=== PATIENT | male | born 1930 | race Caucasian/White ===

== ENCOUNTER 2017-11-27 14:15 | Emergency (ER) | payer MEDICARE, OTHER ==
--- NOTE | 2017-11-27 14:53 | EDM.PDOC ---
ED HPI GENERAL MEDICAL PROBLEM - General Stated Complaint: AWFUL COUGH [id number] Time Seen by Provider: 11/27/17 14:40 Source of Information: Reports: Patient History Limitations: Reports: No Limitations - History of Present Illness INITIAL COMMENTS - FREE TEXT/NARRATIVE: This 87 yo male patient reports to the ED with a persistent cough for the past 3 months. The patient reports that he has been seen for these symptoms, but the cough has not resolved at this time. The patient reports that his symptoms have gotten less over the past couple of months. The patient has a history of throat cancer and has been through treatment. After the completion of the treatment, he reports his current symptoms started. Duration: Week(s):, Constant, Improving (slowly) Location: Reports: Neck, Chest Quality: Reports: Other Severity: Moderate Improves with: Reports: None Worsens with: Reports: Immobilization Associated Symptoms: Reports: Cough - Related Data Allergies Allergy/AdvReac Type Severity Reaction Status Date / Time lisinopril Allergy Cough Verified 11/27/17 14:55 ED ROS GENERAL - Review of Systems Review Of Systems: ROS reveals no pertinent complaints other than HPI. ED EXAM, GENERAL - Physical Exam Exam: See Below Exam Limited By: No Limitations General Appearance: Alert, WD/WN, Mild Distress Eye Exam: Bilateral Eye: EOMI, Normal Inspection, PERRL Ears: Normal External Exam, Normal Canal, Hearing Grossly Normal, Normal TMs Nose: Normal Inspection, Normal Mucosa, No Blood Throat/Mouth: Normal Inspection, Normal Lips, Normal Teeth, Normal Gums, Normal Oropharynx, Normal Voice, No Airway Compromise Head: Atraumatic Neck: Normal Inspection, Supple, Non-Tender, Full Range of Motion Respiratory/Chest: Decreased Breath Sounds (throughout lung patel) Cardiovascular: Normal Peripheral Pulses, Regular Rate, Rhythm, No Edema, No Gallop, No JVD, No Murmur, No Rub GI/Abdominal: Normal Bowel Sounds, Soft, Non-Tender, No Organomegaly, No Distention, No Abnormal Bruit, No Mass (Male) Exam: Deferred Rectal (Males) Exam: Deferred Back Exam: Normal Inspection, Full Range of Motion, NT Extremities: Normal Inspection, Normal Range of Motion, Non-Tender, Normal Capillary Refill, No Pedal Edema Neurological: Alert, Oriented, CN II-XII Intact, Normal Cognition, Normal Gait, Normal Reflexes, No Motor/Sensory Deficits Psychiatric: Normal Affect, Normal Mood Skin Exam: Warm, Dry, Intact, Normal Color, No Rash Lymphatic: No Adenopathy Course - Vital Signs Last Recorded V/S: Last Vital Signs Temp 38.4 C H 11/27/17 14:51 Pulse 105 H 11/27/17 14:51 Resp 20 11/27/17 14:51 BP 139/63 11/27/17 14:51 Pulse Ox 95 11/27/17 14:51 - Orders/Labs/Meds Orders: Active Orders 24 hr Category Date Time Status CULTURE STREP A CONFIRMATION [] Stat Lab 11/27/17 14:46 Results STREP SCRN A RAPID W CULT CONF [] Stat Lab 11/27/17 14:46 Results Labs: Laboratory Tests 11/27/17 11/27/17 Range/Units 14:57 14:57 WBC 6.7 (5.0-10.0) 10^3/uL RBC 3.75 L (4.6-6.2) 10^6/uL Hgb 10.7 L (14.0-18.0) g/dL Hct 32.3 L (40.0-54.0) % MCV 86.1 (80-100) fL MCH 28.5 (27.0-34.0) pg MCHC 33.1 (33.0-35.0) g/dL Plt Count 165 (150-450) 10^3/uL Neut % (Auto) 77.9 H (42.2-75.2) % Lymph % (Auto) 6.7 L (20.5-50.1) % [place] % (Auto) 12.9 H (2-8) % Eos % (Auto) 2.2 (1.0-3.0) % Baso % (Auto) 0.3 (0.0-1.0) % Sodium 130 L (135-145) mmol/L Potassium 4.5 (3.6-5.0) mmol/L Chloride 93 L (101-111) mmol/L Carbon Dioxide 27.0 (21.0-31.0) mmol/L Anion Gap 14.5 BUN 32 H (7-18) mg/dL Creatinine 1.2 (0.6-1.3) mg/dL Est Cr Clr Drug Dosing 36.22 mL/min Estimated GFR (MDRD) 58 BUN/Creatinine Ratio 26.66 Glucose 78 (74-105) mg/dL Calcium 9.7 (8.4-10.2) mg/dl Total Bilirubin 0.5 (0.2-1.0) mg/dL AST 23 (10-42) IU/L ALT 21 (10-60) IU/L Alkaline Phosphatase 49 (42-121) IU/L Total Protein 6.2 L (6.7-8.2) g/dl Albumin 3.0 L (3.2-5.5) g/dl Globulin 3.2 Albumin/Globulin Ratio 0.94 Departure - Departure Time of Disposition: 15:53 Disposition: Home, Self-Care 01 Condition: Fair Clinical Impression: Cough productive of clear sputum - Discharge Information *PRESCRIPTION DRUG MONITORING PROGRAM REVIEWED*: Not Applicable *COPY OF PRESCRIPTION DRUG MONITORING REPORT IN PATIENT ANNE: Not Applicable Instructions: Cough, Adult, [id number] Care Plan Goals: The patient was advised of the examination, lab and x-ray results during the visit. The patient was discharged with a script for Tessalon Pearles (100 mg) # 30 to take 1 by mouth TID as needed. The patient was encouraged to follow-up with his primary care facility for further evaluation (Pulmonary Function Testing) and treatment. If the patient has any additional symptoms or concerns, the patient should follow-up with his primary care provider or return to the emergency department. - My Orders Last 24 Hours: My Active Orders 11/27/17 14:46 CULTURE STREP A CONFIRMATION [RM] Stat STREP SCRN A RAPID W CULT CONF [RM] Stat - Assessment/Plan Last 24 Hours: My Active Orders 11/27/17 14:46 CULTURE STREP A CONFIRMATION [RM] Stat STREP SCRN A RAPID W CULT CONF [RM] Stat
[2017-11-27 15:22] LABS: ANION GAP 14.5
--- NOTE | 2017-11-27 15:23 | CR ---
Clinical history: 87-year-old male complaining of cough and shortness of breath. Interpretation: Abnormal. Upright PA/lateral chest films confirm some chronic lingular and posterior segment infiltrates (bronc hiectasis?) that was evident on CT exam 17 October 2017. Clinical aspiration? Chronic hypertrophic arthritic changes of the dorsal spine. Calcifications arch of the ectatic aorta. Normal cardiac silhouette without cephalization of vascular flow, signs of alveolar edema or dependen t pleural fluid accumulation. No new lung mass, hilar lymphadenopathy or other focal lobar consolidation. No pneumothorax. 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
== END 2017-11-27 16:09 | disposition home or self-care (01) ==
LOC: DL.ED 14:15 → SUPCPDRO 14:15 → DL.ED 16:09
DX: R05 Cough (principal); C15.9 Malignant neoplasm of esophagus, unspecified; I10 Essential (primary) hypertension; Z88.8 Allergy status to other drugs, medicaments and biological substances
CPT/HCPCS: 36415; 71046; 80053; 85025; 87081; 87430; 99283

== ENCOUNTER 2017-12-07 13:27 | Emergency (ER) | payer MEDICARE, OTHER ==
[2017-12-07] MEDS ORDERED: Sodium Chloride 0.9% 10 ML Syringe FLUSH PRN (13:44)
[2017-12-07] MEDS ORDERED: Sodium Chloride 0.9% 1,000 ML IV ONE (14:33)
--- NOTE | 2017-12-07 15:33 | EDM.PDOC ---
Scribed by Helga Sandhu 12/07/17 [id number] for Gisela Stovall MD ED HPI GENERAL MEDICAL PROBLEM - General Chief Complaint: Respiratory Problem Stated Complaint: AMBULANCE / WEAKNESS Time Seen by Provider: 12/07/17 13:44 Source of Information: Reports: Patient, EMS, EMS Notes Reviewed, RN, RN Notes Reviewed History Limitations: Reports: No Limitations - History of Present Illness INITIAL COMMENTS - FREE TEXT/NARRATIVE: Patient presents to ER by [facility] from home with complaint of cough and shortness of breath. Pt reports that he had chemotherapy yesterday, but his states that he finished his cancer treatments in August 2017. Patient also had CT scan yesterday. Patient is confused and not able to provide any history. Pt's states that he has been living at home requiring minimal assistance up until 3 days ago. For the last three days reports he has been confused, too weak to stand or walk, and not eating or drinking anything. Pt became incontinent of urine today. Denies fevers or chills, falls, vomiting, or diarrhea. reports pt has had a cough since completing chemo in August. Onset: Gradual Duration: Constant, Getting Worse Location: Reports: Chest, Generalized Quality: Reports: Other (Denies pain) Severity: Severe Improves with: Reports: None Worsens with: Reports: None Associated Symptoms: Reports: No Other Symptoms - Related Data Allergies Allergy/AdvReac Type Severity Reaction Status Date / Time lisinopril Allergy Cough Verified 12/07/17 13:59 Home Meds: Home Meds Calcium Carbonate/Vitamin D3 [Calcium 500 + Vit D Caplet] 1 cap PO DAILY [History] Losartan [Cozaar] 25 mg PO DAILY 12/07/17 [History] Magnesium 200 mg PO DAILY 12/07/17 [History] Oxybutynin 5 mg PO DAILY 12/07/17 [History] predniSONE [Prednisone] 10 mg PO DAILY 12/07/17 [History] Past Medical History HEENT History: Reports: Impaired Vision Cardiovascular History: Reports: Hypertension Genitourinary History: Reports: Prostate Disorder Oncologic (Cancer) History: Reports: Esophageal, Prostate - Past Surgical History Musculoskeletal Surgical History: Reports: Other (See Below) Other Musculoskeletal Surgeries/Procedures:: back surgery Social & Family History - Family History Family Medical History: Unobtainable - Tobacco Use Smoking Status *Q: Former Smoker Tobacco Use Within Last Twelve Months: Cigarettes - Caffeine Use Caffeine Use: Reports: None - Alcohol Use Alcohol Use History: No - Recreational Drug Use Recreational Drug Use: No - Living Situation & Occupation Living situation: Reports: , with Spouse Occupation: Retired ED ROS GENERAL - Review of Systems Review Of Systems: Unable To Obtain ED EXAM, GENERAL - Physical Exam Exam: See Below Exam Limited By: Altered Mental Status General Appearance: Alert, No Apparent Distress, Other (chronically ill, but non -toxic appearing) Eye Exam: Bilateral Eye: Normal Inspection Ears: Normal External Exam Nose: Normal Inspection, No Blood Throat/Mouth: No Airway Compromise, Other (very dry oral membranes) Head: Atraumatic, Normocephalic Neck: Normal Inspection, Full Range of Motion Respiratory/Chest: No Accessory Muscle Use, Chest Non-Tender, Decreased Breath Sounds, Crackles, Other (hyperventilating). No: Rales, Rhonchi, Wheezing, Stridor, Retractions, Splinting, Prolonged Expiration Cardiovascular: Regular Rate, Rhythm GI/Abdominal: Normal Bowel Sounds, Soft, Non-Tender, No Distention (Male) Exam: Deferred Extremities: Normal Inspection Neurological: Alert, No Motor/Sensory Deficits, Confused, Other (generalized weakness) Psychiatric: Flat Affect Skin Exam: Warm, Dry, Intact, Normal Color Course - Vital Signs Last Recorded V/S: Last Vital Signs Temp 37.2 C 12/07/17 14:20 Pulse 97 12/07/17 13:47 Resp 30 H 12/07/17 13:47 BP 164/66 H 12/07/17 13:47 Pulse Ox 84 L 12/07/17 13:47 - Orders/Labs/Meds Orders: Active Orders 24 hr Category Date Time Status Blood Glucose Check, Bedside [RC] ONETIME Care 12/07/17 13:45 Active Peripheral IV Care [RC] . DIRECTED Care 12/07/17 13:46 Active Chest 1V Frontal [CR] Stat Exams 12/07/17 13:44 Taken CULTURE BLOOD [BC] Stat Lab 12/07/17 13:50 Received CULTURE BLOOD [BC] Stat Lab 12/07/17 13:56 Received Sodium Chloride 0.9% [Normal Saline] 1,000 ml Med 12/07/17 14:33 Active IV .BOLUS Sodium Chloride 0.9% [Saline Flush] Med 12/07/17 13:44 Active 10 ml FLUSH ASDIRECTED PRN Blood Culture x2 Reflex Set [OM.PC] Stat Oth 12/07/17 13:44 Ordered Peripheral IV Insertion Adult [OM.PC] Stat Oth 12/07/17 13:44 Ordered Medication Orders Sodium Chloride (Normal Saline) 1,000 mls @ 250 mls/hr IV .BOLUS ONE Stop: 12/07/17 18:32 Last Admin: 12/07/17 14:45 Dose: 250 mls/hr Sodium Chloride (Saline Flush) 10 ml FLUSH ASDIRECTED PRN PRN Reason: Keep Vein Open Last Admin: 12/07/17 13:55 Dose: 10 ml Labs: Laboratory Tests 12/07/17 12/07/17 12/07/17 Range/Units 13:50 13:50 13:50 WBC (5.0-10.0) 10^3/uL RBC (4.6-6.2) 10^6/uL Hgb (14.0-18.0) g/dL Hct (40.0-54.0) % MCV (80-100) fL MCH (27.0-34.0) pg MCHC (33.0-35.0) g/dL Plt Count (150-450) 10^3/uL Neut % (Auto) (42.2-75.2) % Lymph % (Auto) (20.5-50.1) % [place] % (Auto) (2-8) % Eos % (Auto) (1.0-3.0) % Baso % (Auto) (0.0-1.0) % Sodium 135 (135-145) mmol/L Potassium 4.0 (3.6-5.0) mmol/L Chloride 97 L (101-111) mmol/L Carbon Dioxide 29.0 (21.0-31.0) mmol/L Anion Gap 13.0 BUN 65 H D (7-18) mg/dL Creatinine 3.3 H D (0.6-1.3) mg/dL Est Cr Clr Drug Dosing 12.60 mL/min Estimated GFR (MDRD) 18 BUN/Creatinine Ratio 19.69 Glucose 95 (74-105) mg/dL POC Glucose (83-110) mg/dl Lactic Acid (0.5-2.2) mmol/L Calcium 14.2 H* D (8.4-10.2) mg/dl Phosphorus 5.0 H (2.5-4.6) mg/dL Magnesium 2.2 (1.8-2.5) mg/dL Total Bilirubin 0.6 (0.2-1.0) mg/dL AST 31 (10-42) IU/L ALT 17 (10-60) IU/L Alkaline Phosphatase 57 (42-121) IU/L Total Protein 6.7 (6.7-8.2) g/dl Albumin 2.7 L (3.2-5.5) g/dl Globulin 4.0 Albumin/Globulin Ratio 0.68 TSH, Ultra Sensitive 1.31 (0.45-5.33) uIu/mL Urine Color (YELLOW) Urine Appearance (CLEAR) Urine pH (5.0-9.0) Ur Specific [place] (1.005-1.030) Urine Protein (NEGATIVE) Urine Glucose (UA) (NEGATIVE) Urine Ketones (NEGATIVE) Urine Occult Blood (NEGATIVE) Urine Nitrite (NEGATIVE) Urine Bilirubin (NEGATIVE) Urine Urobilinogen (0.2-1.0) mg/dL Ur Leukocyte Esterase (NEGATIVE) Urine RBC /HPF Urine WBC (0-5/HPF) /HPF Ur Epithelial Cells /HPF Urine Bacteria (0-FEW/HPF) /HPF Urine Mucus /LPF 12/07/17 12/07/17 12/07/17 Range/Units 13:52 13:56 13:56 WBC 5.8 (5.0-10.0) 10^3/uL RBC 3.35 L (4.6-6.2) 10^6/uL Hgb 9.5 L (14.0-18.0) g/dL Hct 28.6 L (40.0-54.0) % MCV 85.4 (80-100) fL MCH 28.4 (27.0-34.0) pg MCHC 33.2 (33.0-35.0) g/dL Plt Count 185 (150-450) 10^3/uL Neut % (Auto) 70.4 (42.2-75.2) % Lymph % (Auto) 11.9 L (20.5-50.1) % [place] % (Auto) 16.4 H (2-8) % Eos % (Auto) 1.0 (1.0-3.0) % Baso % (Auto) 0.3 (0.0-1.0) % Sodium (135-145) mmol/L Potassium (3.6-5.0) mmol/L Chloride (101-111) mmol/L Carbon Dioxide (21.0-31.0) mmol/L Anion Gap BUN (7-18) mg/dL Creatinine (0.6-1.3) mg/dL Est Cr Clr Drug Dosing mL/min Estimated GFR (MDRD) BUN/Creatinine Ratio Glucose (74-105) mg/dL POC Glucose 87 (83-110) mg/dl Lactic Acid 1.1 (0.5-2.2) mmol/L Calcium (8.4-10.2) mg/dl Phosphorus (2.5-4.6) mg/dL Magnesium (1.8-2.5) mg/dL Total Bilirubin (0.2-1.0) mg/dL AST (10-42) IU/L ALT (10-60) IU/L Alkaline Phosphatase (42-121) IU/L Total Protein (6.7-8.2) g/dl Albumin (3.2-5.5) g/dl Globulin Albumin/Globulin Ratio TSH, Ultra Sensitive (0.45-5.33) uIu/mL Urine Color (YELLOW) Urine Appearance (CLEAR) Urine pH (5.0-9.0) Ur Specific [place] (1.005-1.030) Urine Protein (NEGATIVE) Urine Glucose (UA) (NEGATIVE) Urine Ketones (NEGATIVE) Urine Occult Blood (NEGATIVE) Urine Nitrite (NEGATIVE) Urine Bilirubin (NEGATIVE) Urine Urobilinogen (0.2-1.0) mg/dL Ur Leukocyte Esterase (NEGATIVE) Urine RBC /HPF Urine WBC (0-5/HPF) /HPF Ur Epithelial Cells /HPF Urine Bacteria (0-FEW/HPF) /HPF Urine Mucus /LPF 12/07/17 Range/Units 14:17 WBC (5.0-10.0) 10^3/uL RBC (4.6-6.2) 10^6/uL Hgb (14.0-18.0) g/dL Hct (40.0-54.0) % MCV (80-100) fL MCH (27.0-34.0) pg MCHC (33.0-35.0) g/dL Plt Count (150-450) 10^3/uL Neut % (Auto) (42.2-75.2) % Lymph % (Auto) (20.5-50.1) % [place] % (Auto) (2-8) % Eos % (Auto) (1.0-3.0) % Baso % (Auto) (0.0-1.0) % Sodium (135-145) mmol/L Potassium (3.6-5.0) mmol/L Chloride (101-111) mmol/L Carbon Dioxide (21.0-31.0) mmol/L Anion Gap BUN (7-18) mg/dL Creatinine (0.6-1.3) mg/dL Est Cr Clr Drug Dosing mL/min Estimated GFR (MDRD) BUN/Creatinine Ratio Glucose (74-105) mg/dL POC Glucose (83-110) mg/dl Lactic Acid (0.5-2.2) mmol/L Calcium (8.4-10.2) mg/dl Phosphorus (2.5-4.6) mg/dL Magnesium (1.8-2.5) mg/dL Total Bilirubin (0.2-1.0) mg/dL AST (10-42) IU/L ALT (10-60) IU/L Alkaline Phosphatase (42-121) IU/L Total Protein (6.7-8.2) g/dl Albumin (3.2-5.5) g/dl Globulin Albumin/Globulin Ratio TSH, Ultra Sensitive (0.45-5.33) uIu/mL Urine Color Yellow (YELLOW) Urine Appearance Clear (CLEAR) Urine pH 6.5 (5.0-9.0) Ur Specific [place] 1.015 (1.005-1.030) Urine Protein Negative (NEGATIVE) Urine Glucose (UA) Negative (NEGATIVE) Urine Ketones Negative (NEGATIVE) Urine Occult Blood Trace-intact H (NEGATIVE) Urine Nitrite Negative (NEGATIVE) Urine Bilirubin Negative (NEGATIVE) Urine Urobilinogen 0.2 (0.2-1.0) mg/dL Ur Leukocyte Esterase Negative (NEGATIVE) Urine RBC 5-10 H /HPF Urine WBC 5-10 H (0-5/HPF) /HPF Ur Epithelial Cells Rare /HPF Urine Bacteria Occasional (0-FEW/HPF) /HPF Urine Mucus Occasional /LPF Influenza A and B: Negative. Meds: Medications Generic Name Dose Route Start Last Admin Trade Name Freq PRN Reason Stop Dose Admin Sodium Chloride 1,000 mls @ 250 mls/hr 12/07/17 14:33 12/07/17 14:45 Normal Saline IV 12/07/17 18:32 250 mls/hr .BOLUS ONE Administration Sodium Chloride 10 ml 12/07/17 13:44 12/07/17 13:55 Saline Flush FLUSH 10 ml ASDIRECTED PRN Administration Keep Vein Open - Radiology Interpretation Free Text/Narrative:: [facility] [place] [facility] Final Radiology Report Call: [phone] assistance Online chat: [email or web address] Name: JEFF ZHAO Age: 87Years M Date: 12/07/2017 SSN: -- : [id number] Study: XR CHEST 1 VIEW Requesting Physician: GISELA STOVALL Images: 1 Addl Studies: Provided Clinical History: Contrast: Contrast Medium: Contrast Amount: Contrast Method: CONFIDENTIALITY STATEMENT This report is intended only for use by the referring physician, and only in accordance with law. If you received this in error, call [phone]. Page 1 of 1 EXAM: XR Chest, 1 View EXAM DATE/TIME: 12/07/2017 2:06 PM CLINICAL HISTORY: 87 years old, male; Pain; Chest pain; Type not specified TECHNIQUE: XR of the chest, 1 view. COMPARISON: CT Chest wo Cont 12/06/2017 2:06 PM FINDINGS: Lungs: Nonspecific bibasilar consolidation is present, consistent with atelectasis, edema, or pneumonia. Pleural space: Unremarkable. No pleural effusion. No pneumothorax. Heart/Mediastinum: The heart demonstrates mild diffuse enlargement. The vasculature demonstrates diffuse moderate atherosclerotic calcification. Bones/joints: The thoracic spine demonstrates moderate degenerative changes at multiple levels. IMPRESSION: Nonspecific bibasilar consolidation is present, consistent with atelectasis, edema, or pneumonia. Thank you for allowing us to participate in the care of your patient. Dictated and Authenticated by: Mike Lazo DO 12/07/2017 2:52 PM Central Time ([place] & [place]) - Re-Assessments/Exams Free Text/Narrative Re-Assessment/Exam: 12/07/17 15:11 Discussed transfer options with pt's . She wishes to have pt transferred to [facility] in rather than [place]. She site the distance, and insurance coverage, expressing concern that the transfer may not be paid by insurance if he does not go to the closest capable facility, and that he likely will not require care from his oncologist at this point. Departure - Departure Time of Disposition: 15:14 Disposition: DC/Tfer to [facility] 02 Condition: Serious Clinical Impression: Hypercalcemia of malignancy, Atelectasis of both lungs, Hypoxia, History of esophageal cancer, History of prostate cancer - Discharge Information *PRESCRIPTION DRUG MONITORING PROGRAM REVIEWED*: No *COPY OF PRESCRIPTION DRUG MONITORING REPORT IN PATIENT ANNE: No Referrals: Ebony Salmon PA-C [Primary Care Provider] - Forms: ED Department Discharge, Interfacility Transfer EMTALA - My Orders Last 24 Hours: My Active Orders 12/07/17 13:44 Chest 1V Frontal [CR] Stat Sodium Chloride 0.9% [Saline Flush] 10 ml FLUSH ASDIRECTED PRN Blood Culture x2 Reflex Set [OM.PC] Stat Peripheral IV Insertion Adult [OM.PC] Stat 12/07/17 13:45 Blood Glucose Check, Bedside [RC] ONETIME 12/07/17 13:46 Peripheral IV Care [RC] . DIRECTED 12/07/17 13:50 CULTURE BLOOD [BC] Stat 12/07/17 13:56 CULTURE BLOOD [BC] Stat 12/07/17 14:33 Sodium Chloride 0.9% [Normal Saline] 1,000 ml IV .BOLUS - Assessment/Plan Last 24 Hours: My Active Orders 12/07/17 13:44 Chest 1V Frontal [CR] Stat Sodium Chloride 0.9% [Saline Flush] 10 ml FLUSH ASDIRECTED PRN Blood Culture x2 Reflex Set [OM.PC] Stat Peripheral IV Insertion Adult [OM.PC] Stat 12/07/17 13:45 Blood Glucose Check, Bedside [RC] ONETIME 12/07/17 13:46 Peripheral IV Care [RC] . DIRECTED 12/07/17 13:50 CULTURE BLOOD [BC] Stat 12/07/17 13:56 CULTURE BLOOD [BC] Stat 12/07/17 14:33 Sodium Chloride 0.9% [Normal Saline] 1,000 ml IV .BOLUS I have read and agree with the documentation that has been completed regarding this visit. By signing this record, I attest that the documentation was completed in my physical presence and is an accurate record of the encounter.
== END 2017-12-07 15:56 ==
LOC: DL.ED 13:27
DX: R09.02 Hypoxemia (principal); E83.52 Hypercalcemia; J98.11 Atelectasis; I10 Essential (primary) hypertension; Z85.01 Personal history of malignant neoplasm of esophagus; Z85.46 Personal history of malignant neoplasm of prostate; Z88.8 Allergy status to other drugs, medicaments and biological substances; Z79.899 Other long term (current) drug therapy; Z87.891 Personal history of nicotine dependence
CPT/HCPCS: 36415; 71045; 80053; 81001; 82962; 83605; 83735; 84100; 84443; 85025; 87040; 87804; 96360; 99285; J7030; J7050

== ENCOUNTER → 2018-06-11 | Day surgery (SDC) | payer MEDICARE, OTHER ==
[~2018-06-11] MED LIST: Dextrose 5%-0.45% NaCl 1,000 ML IV SCH; Midazolam 1 MG/ML 2 ML SDV IV ONE; Midazolam 1 MG/ML 2 ML SDV ONE; fentaNYL 100 MCG/2 ML SDV IV ONE; fentaNYL 100 MCG/2 ML SDV ONE
--- NOTE | 2018-06-11 15:10 | OR ---
DATE: 06/11/2018 PROCEDURE: Esophagogastroduodenoscopy, NBI, and multiple pinch biopsies. INSTRUMENT USED: GIF-HQ190 Olympus video panendoscope. PREMEDICATIONS: No oral topical anesthesia used. Fentanyl 50 mcg intravenous, Versed 1 mg intravenous. Nasal O2 cannula. The procedure was done under pulse oximetry, BP recording, and front desk monitor. INDICATION: The patient was status post chemoradiation therapy. For esophageal cancer. Surveillance esophagogastroduodenoscopy is performed for detection of any recurrent malignancy, endoscopic hemostasis therapy if needed. The scope was passed with ease. Adequate visualization of the esophagus was made proximal to distal areas. No upper esophageal lesions identified. No distal esophageal stricture. No uphill or downhill esophageal varices. No Radha-Bach tear. No evidence of erosive esophagitis by Glynn criteria. Diminutive esophageal nodule was noted. NBI views were obtained. Photographs were taken. Numerous pinch biopsies obtained histopathology. No proximal gastric varices noted. Gastric fundus examination by retroflexion showed no polypoid lesions. No gastric ulcer, malignant mass, or vascular ectasia identified. Duodenal bulb showed no ulcer. Visualized second part of the duodenum was unremarkable. No bleeding was noted from any of the visualized areas at the completion of the examination. IMPRESSION: Esophageal nodule. The patient tolerated the procedure well. [facility] /[id number]
--- NOTE | 2018-06-12 08:01 | LETTER ---
06/11/2018 Dr. Shirley [facility] [address] [place] [address] RE: ROSCOE ZHAO : [address] Olsen: Mr. Roscoe Zhao had esophagogastroduodenoscopy done this morning, and he tolerated the procedure well. I hereby send a copy of the endoscopy note and photographs for your review. Thank you. Sincerely, [facility] /[id number]
== END | disposition home or self-care (01) ==
LOC: DL.ENDO 06:44
PROVIDERS: ATTEND Internal Medicine Gastroenterology
DX: Z08 Encounter for follow-up examination after completed treatment for malignant neoplasm (principal); K20.9 Esophagitis, unspecified; I10 Essential (primary) hypertension; Z92.3 Personal history of irradiation; Z85.01 Personal history of malignant neoplasm of esophagus; Z92.21 Personal history of antineoplastic chemotherapy
CPT/HCPCS: 43239; J7042; J2250; J3010

== ENCOUNTER 2018-06-18 09:43 | Day surgery (SDC) | payer MEDICARE, OTHER ==
[2018-06-18] MEDS ORDERED: Midazolam 1 MG/ML 2 ML SDV IV ONE (09:44)
[2018-06-18] MEDS ORDERED: Dexamethasone 4 MG/ML SDV IV ONE (09:44)
[2018-06-18] MEDS ORDERED: Sodium Chloride 0.9% 10 ML Syringe IV ONE (09:44)
[2018-06-18] MEDS ORDERED: Sodium Chloride 0.9% 10 ML Syringe FLUSH PRN (10:00)
[2018-06-18] MEDS ORDERED: Cataract Ophth Solution EYELF ONE (10:00)
[2018-06-18] MEDS ORDERED: Timolol Maleate 0.5% Ophth Soln 5 ML Bottle EYELF ONE (10:00)
[2018-06-18] MEDS ORDERED: Proparacaine 0.5% Ophth Soln 15 ML Bottle EYELF ONE (10:00)
[2018-06-18] MEDS ORDERED: Acetaminophen 325 MG Tab PO PRN (10:00)
[2018-06-18] MEDS ORDERED: Ondansetron 4 MG/2 ML SDV IVPUSH PRN (10:00)
[2018-06-18] MEDS ORDERED: Phenylephrine 10% Ophth Soln 5 ML Bot EYELF PRN (10:00)
[2018-06-18] MEDS ORDERED: Moxifloxacin 0.5% Ophth Soln 3 ML Bottle EYELF ONE (10:00)
[2018-06-18] MEDS ORDERED: Phenylephrine 10% Ophth Soln 5 ML Bot EYELF ONE (10:00)
[2018-06-18] MEDS ORDERED: Povidone-Iodine 5% Sterile Ophth Soln 30 ML Bottle EYELF ONE ×2 (10:00→11:07)
[2018-06-18] MEDS ORDERED: Lidocaine 1% 30 ML SDV ONE (11:06)
[2018-06-18] MEDS ORDERED: Apraclonidine 0.5% Ophth Soln 5 ML Bot EYELF ONE (11:07)
[2018-06-18] MEDS ORDERED: Diclofenac Sodium 0.1% Ophth Soln 5 ML Bottle EYELF ONE (11:07)
[2018-06-18] MEDS ORDERED: Tetracaine HCl/PF 0.5% 4 ML Bottle EYELF ONE (11:07)
[2018-06-18] MEDS ORDERED: Balanced Salt Solution Ophth Irrig 500 ML Bottle IOCULAR ONE (11:08)
[2018-06-18] MEDS ORDERED: Vancomycin 500 MG SDV EYELF ONE (11:08)
[2018-06-18] MEDS ORDERED: Dexamethasone/Neomycin/Polymyxin B Ophth Oint 3.5 GM Tube EYELF ONE (11:08)
[2018-06-18] MEDS ORDERED: Chondroitin Sulfate/Hyaluronate Sodium Ophth Inj 0.75 ML Syringe EYELF ONE (11:08)
--- NOTE | 2018-06-18 17:40 | OR ---
DATE: 06/18/2018 PREOPERATIVE DIAGNOSIS: Visually significant mixed cataract, left eye. POSTOPERATIVE DIAGNOSIS: Visually significant mixed cataract, left eye. PROCEDURE: Extracapsular cataract extraction with intraocular lens implant, left eye. ANESTHESIA: Topical/local MAC. COMPLICATIONS: None. INDICATION: Mr. Garvey was seen in the clinic. He is unhappy with his vision with complaints of blurred distance and blurred near vision, difficulty driving, and difficulty reading. Examination reveals mixed cataract. I explained the options, offered surgery, and explained risks preoperatively including, but not limited to infection, retinal detachment, loss of vision, need for additional surgery, amongst others. We discussed implant options. He has requested a monofocal implant. OPERATIVE DESCRIPTION: After informed consent was obtained and the risks, benefits, and alternatives were explained, the patient was brought to the operative suite and topical anesthesia was administered. The patient was then prepped and draped in the sterile fashion and attention was placed on the left eye. A sterile lid speculum was placed into the left eye to allow operative exposure. A full-thickness paracentesis was made in the temporal portion of the operative eye. Preservative-free lidocaine 0.1 mL was injected into the anterior chamber followed by viscoelastic. A full-thickness corneal incision was then made into the anterior chamber. A bent needle cystotome was used to create a small hitesh in the anterior capsule. The capsulorrhexis forceps was then used to create a 360-degree curvilinear capsulorrhexis. The nucleus was then removed using a phacoemulsification handpiece and the remaining cortical material was then removed with irrigation and aspiration handpiece. Following removal of the cortical material, the capsular bag was then inspected and noted to be free of any holes or tears. Viscoelastic was then injected into the capsular bag and the intraocular lens was inserted into the capsular bag. The viscoelastic material was then removed from both the anterior and posterior chambers and from behind the IOL. The lens and capsular bag were then reinspected. The IOL was well centered and the capsular bag intact. The wound and paracentesis sites were inspected and hydrated with balanced saline solution. Both were found to be self-sealing. The intraocular pressure was assessed digitally and found to be within normal range. A good red reflex was noted at the completion of the procedure. No complications occurred during the operation. At the completion of the procedure, Maxitrol, Voltaren, and Iopidine drops were placed into the operative eye. A sterile eye shield was placed over the operative eye and the patient was transported to the postoperative recovery area having tolerated the procedure well. Postoperative instructions were given along with a postoperative appointment. The patient was advised to call with any questions or concerns. [facility] /[id number]
== END 2018-06-18 12:15 | disposition home or self-care (01) ==
LOC: DL.SDS 09:43
PROVIDERS: ATTEND Ophthalmology
DX: H26.8 Other specified cataract (principal); I48.91 Unspecified atrial fibrillation; I12.9 Hypertensive chronic kidney disease with stage 1 through stage 4 chronic kidney disease, or unspecified chronic kidney disease; N18.3 Chronic kidney disease, stage 3 (moderate); D64.9 Anemia, unspecified; F32.9 Major depressive disorder, single episode, unspecified; C61 Malignant neoplasm of prostate; M19.90 Unspecified osteoarthritis, unspecified site; E66.9 Obesity, unspecified; Z68.24 Body mass index [BMI] 24.0-24.9, adult; Z87.891 Personal history of nicotine dependence; Z88.8 Allergy status to other drugs, medicaments and biological substances; Z79.899 Other long term (current) drug therapy
CPT/HCPCS: 00142; 66984; A9270; C1780; J1100; J2001; J2250; J3370

== ENCOUNTER 2018-06-25 08:31 | Day surgery (SDC) | payer MEDICARE, OTHER ==
[~2018-06-25 08:31] MED LIST changes: +Acetaminophen 325 MG Tab PO PRN; +Cataract Ophth Solution EYERT ONE; -Dextrose 5%-0.45% NaCl 1,000 ML IV SCH; -Midazolam 1 MG/ML 2 ML SDV IV ONE; -Midazolam 1 MG/ML 2 ML SDV ONE; +Moxifloxacin 0.5% Ophth Soln 3 ML Bottle EYERT ONE; +Ondansetron 4 MG/2 ML SDV IVPUSH PRN; +Phenylephrine 10% Ophth Soln 5 ML Bot EYERT ONE; +Phenylephrine 10% Ophth Soln 5 ML Bot EYERT PRN; +Povidone-Iodine 5% Sterile Ophth Soln 30 ML Bottle EYERT ONE; +Proparacaine 0.5% Ophth Soln 15 ML Bottle EYERT ONE; +Sodium Chloride 0.9% 10 ML Syringe FLUSH PRN; +Timolol Maleate 0.5% Ophth Soln 5 ML Bottle EYERT ONE; -fentaNYL 100 MCG/2 ML SDV IV ONE; -fentaNYL 100 MCG/2 ML SDV ONE
[2018-06-25] MEDS ORDERED: Midazolam 1 MG/ML 2 ML SDV IV ONE (08:32)
[2018-06-25] MEDS ORDERED: Dexamethasone 4 MG/ML SDV IV ONE (08:32)
[2018-06-25] MEDS ORDERED: Povidone-Iodine 5% Sterile Ophth Soln 30 ML Bottle EYERT ONE (09:45)
[2018-06-25] MEDS ORDERED: Lidocaine 1% 30 ML SDV ONE (09:46)
[2018-06-25] MEDS ORDERED: Tetracaine HCl/PF 0.5% 4 ML Bottle EYERT ONE (09:46)
[2018-06-25] MEDS ORDERED: Diclofenac Sodium 0.1% Ophth Soln 5 ML Bottle EYERT ONE (09:47)
[2018-06-25] MEDS ORDERED: Apraclonidine 0.5% Ophth Soln 5 ML Bot EYERT ONE (09:47)
[2018-06-25] MEDS ORDERED: Dexamethasone/Neomycin/Polymyxin B Ophth Oint 3.5 GM Tube EYERT ONE (09:47)
[2018-06-25] MEDS ORDERED: Vancomycin 500 MG SDV EYERT ONE (09:48)
[2018-06-25] MEDS ORDERED: Chondroitin Sulfate/Hyaluronate Sodium Ophth Inj 0.75 ML Syringe EYERT ONE (09:48)
[2018-06-25] MEDS ORDERED: Balanced Salt Solution Ophth Irrig 500 ML Bottle IOCULAR ONE (09:48)
--- NOTE | 2018-06-25 16:25 | OR ---
DATE: 06/25/2018 PREOPERATIVE DIAGNOSIS: Visually significant mixed cataract, right eye. POSTOPERATIVE DIAGNOSIS: Visually significant mixed cataract, right eye. PROCEDURE: Extracapsular cataract extraction with intraocular lens implant, right eye. ANESTHESIA: Topical/local MAC. COMPLICATIONS: None. INDICATION: Mr. Garvey was seen in the clinic with complaints of blurred vision. His examination revealed visually significant mixed cataract. I explained the options. I offered cataract surgery and I explained risks including the potential for infection, retinal detachment, loss of vision amongst others. We discussed implant options. He has requested a monofocal implant. He is comfortable wearing spectacle correction following surgery if necessary. OPERATIVE DESCRIPTION: After informed consent was obtained and the risks, benefits, and alternatives were explained, the patient was brought to the operative suite and topical anesthesia was administered. The patient was then prepped and draped in the sterile fashion and attention was placed on the right eye. A sterile lid speculum was placed into the right eye to allow operative exposure. A full-thickness paracentesis was made in the temporal portion of the operative eye. Preservative-free lidocaine 0.1 mL was injected into the anterior chamber followed by viscoelastic. A full-thickness corneal incision was then made into the anterior chamber. A bent needle cystotome was used to create a small hitesh in the anterior capsule. The capsulorrhexis forceps was then used to create a 360-degree curvilinear capsulorrhexis. The nucleus was then removed using a phacoemulsification handpiece and the remaining cortical material was then removed with irrigation and aspiration handpiece. Following removal of the cortical material, the capsular bag was then inspected and noted to be free of any holes or tears. Viscoelastic was then injected into the capsular bag and the intraocular lens was inserted into the capsular bag. The viscoelastic material was then removed from both the anterior and posterior chambers and from behind the IOL. The lens and capsular bag were then reinspected. The IOL was well centered and the capsular bag intact. The wound and paracentesis sites were inspected and hydrated with balanced saline solution. Both were found to be self- sealing. The intraocular pressure was assessed digitally and found to be within normal range. A good red reflex was noted at the completion of the procedure. No complications occurred during the operation. At the completion of the procedure, Maxitrol, Voltaren, and Iopidine drops were placed into the operative eye. A sterile eye shield was placed over the operative eye and the patient was transported to the postoperative recovery area having tolerated the procedure well. Postoperative instructions were given along with a postoperative appointment. The patient was advised to call with any questions or concerns. [facility] /[id number]
== END 2018-06-25 11:07 | disposition home or self-care (01) ==
LOC: DL.SDS 08:31
PROVIDERS: ATTEND Ophthalmology
DX: H25.811 Combined forms of age-related cataract, right eye (principal); I48.2 Chronic atrial fibrillation; I12.9 Hypertensive chronic kidney disease with stage 1 through stage 4 chronic kidney disease, or unspecified chronic kidney disease; N18.9 Chronic kidney disease, unspecified; D64.9 Anemia, unspecified; E83.52 Hypercalcemia; E87.5 Hyperkalemia; F32.9 Major depressive disorder, single episode, unspecified; Z96.1 Presence of intraocular lens; Z79.899 Other long term (current) drug therapy; Z88.8 Allergy status to other drugs, medicaments and biological substances; Z87.891 Personal history of nicotine dependence
CPT/HCPCS: 00140; 66984; A9270; C1780; J1100; J2001; J2250; J3370; V2632

== ENCOUNTER 2019-01-25 11:17 | Emergency (ER) | payer MEDICARE, OTHER ==
--- NOTE | 2019-01-25 11:42 | EDM.PDOC ---
ED HPI GENERAL MEDICAL PROBLEM - General Chief Complaint: Headache Stated Complaint: RIGHT SIDE OF HEAD HURTS Time Seen by Provider: 01/25/19 11:41 Source of Information: Reports: Patient, RN, RN Notes Reviewed History Limitations: Reports: No Limitations - History of Present Illness INITIAL COMMENTS - FREE TEXT/NARRATIVE: patient presents to ER with complaint of pain in the right side of the head for the past 2 days. Patient explains the pain as a zinging pain that moves only on the right side of the head. Patient states he did have a fall about a year ago where he thinks he mable his neck, but does not feel this is linked. Patient denies being on any blood thinners, denies any falls or injuries, denies any visual disturbances. Patient denies recent illnesses, fever or chills, sinus congestion, postnasal drip. Patient does complain of right eye watering. Onset: Gradual Right Head Pain Score (Numeric/FACES): 4 - Related Data Allergies Allergy/AdvReac Type Severity Reaction Status Date / Time lisinopril AdvReac Cough Verified 01/25/19 11:29 Home Meds: Home Meds Losartan [Cozaar] 25 mg PO DAILY 12/07/17 [History] Magnesium 400 mg PO DAILY 12/07/17 [History] Diltiazem HCl [Diltiazem 24Hr ER] 180 mg PO DAILY 12/18/17 [History] Fluorouracil [Carac] 30 gm TP BEDTIME PRN 12/18/17 [History] Pantoprazole [ProTONIX] 40 mg PO DAILY 12/18/17 [History] Vitamin E 400 unit PO DAILY 12/18/17 [History] Calcitonin,Sedgwick,Synthetic [Calcitonin-Sedgwick] 1 spray INH DAILY 06/10/18 [ History] Cholecalciferol (Vitamin D3) [Vitamin D3] 2,000 intnl unit PO DAILY 06/10/18 [ History] Past Medical History HEENT History: Reports: Cataract, Impaired Vision, Other (See Below) Other HEENT History: HX OF ESOPHAGEAL CANCER Cardiovascular History: Reports: Hypertension Respiratory History: Reports: Other (See Below) Other Respiratory History: CHRONIC DRY COUGH. HX OF ESPOPHGEAL CA Gastrointestinal History: Reports: GERD, Other (See Below) Other Gastrointestinal History: esophageal CA Genitourinary History: Reports: Chronic Renal Insuffiency, Prostate Disorder Musculoskeletal History: Reports: None Neurological History: Reports: None Psychiatric History: Reports: Anxiety, Depression Endocrine/Metabolic History: Reports: None Hematologic History: Reports: Anemia, Blood Transfusion(s) Immunologic History: Reports: None Oncologic (Cancer) History: Reports: Basal Cell Carcinoma, Esophageal, Prostate Dermatologic History: Reports: Other (See Below) Other Dermatologic History: BASAL CELL CARCINOMA - Infectious Disease History Infectious Disease History: Reports: Chicken Pox, Measles, Mumps - Past Surgical History Head Surgeries/Procedures: Reports: None HEENT Surgical History: Reports: None, Cataract Surgery Cardiovascular Surgical History: Reports: None Respiratory Surgical History: Reports: None GI Surgical History: Reports: Colonoscopy, EGD Male Surgical History: Reports: Circumcision Musculoskeletal Surgical History: Reports: Other (See Below) Other Musculoskeletal Surgeries/Procedures:: back surgery Dermatological Surgical History: Reports: Skin Biopsy Social & Family History - Family History Family Medical History: Unobtainable - Tobacco Use Smoking Status *Q: Never Smoker - Caffeine Use Caffeine Use: Reports: Coffee Other Caffeine Use: VERY OCCASIONAL - Recreational Drug Use Recreational Drug Use: No - Living Situation & Occupation Living situation: Reports: , with Spouse Occupation: Retired ED ROS GENERAL - Review of Systems Review Of Systems: Comprehensive ROS is negative, except as noted in HPI. - Physical Exam Exam: See Below Exam Limited By: No Limitations General Appearance: Alert, WD/WN, No Apparent Distress Eye Exam: Bilateral Eye: EOMI, Normal Inspection Ears: Normal External Exam, Hearing Grossly Normal Nose: Normal Inspection Throat/Mouth: Normal Inspection, Normal Voice, No Airway Compromise Head Exam: Atraumatic, Normocephalic, Scalp Tenderness, Facial Tenderness Neck: Normal Inspection, Supple, Non-Tender, Limited Range of Motion Respiratory/Chest: No Respiratory Distress, Lungs Clear, Normal Breath Sounds, No Accessory Muscle Use, Chest Non-Tender Cardiovascular: Normal Peripheral Pulses, Regular Rate, Rhythm, No Edema, No Gallop, No JVD, No Murmur, No Rub GI/Abdominal: Normal Bowel Sounds, Soft, Non-Tender (Male) Exam: Deferred Rectal (Males) Exam: Deferred Neuro Exam (Abbreviated): Alert, Oriented, CN II-XII Intact, Normal Cognition, Normal Gait, Normal Reflexes, No Motor/Sensory Deficits Back Exam: Normal Inspection, Decreased Range of Motion Extremities: Normal Inspection, Normal Range of Motion, Non-Tender, No Pedal Edema, Normal Capillary Refill Psychiatric: Normal Affect, Normal Mood Skin Exam: Warm, Dry, Intact, Normal Color, Zoster-Like Rash (small area approximately 1 cm X1 cm above the right eyebrow near the temporal area, vesicles present, appears herpetic) Course - Vital Signs Last Recorded V/S: Last Vital Signs Temp 97.4 F 01/25/19 11:31 Pulse 81 01/25/19 11:31 Resp 16 01/25/19 11:31 BP 151/91 H 01/25/19 11:31 Pulse Ox 96 01/25/19 11:31 - Radiology Interpretation Free Text/Narrative:: Head CT without contrast: See radiologist's report Departure - Departure Time of Disposition: 12:43 Disposition: Home, Self-Care 01 Condition: Fair Clinical Impression: Shingles Qualifiers: Herpes zoster complications: with ocular involvement Herpes zoster ocular complication detail: conjunctivitis Qualified Code(s): B02.31 - Zoster conjunctivitis - Discharge Information *PRESCRIPTION DRUG MONITORING PROGRAM REVIEWED*: No *COPY OF PRESCRIPTION DRUG MONITORING REPORT IN PATIENT ANNE: No Instructions: Shingles, [id number] Forms: ED Department Discharge Additional Instructions: RX: Valacyclovir 1000mg orally three times daily for 7 days Dexamethasone eye drops as directed May use Tylenol as directed for pain Follow up with your primary care facility Follow up with your optomatrist tomorrow
--- NOTE | 2019-01-25 12:43 | CT ---
EXAMINATION: Head wo Cont SEX: Male AGE: 88 years CLINICAL HISTORY: 88-year-old male "zingers" right side of head (headache). Possible "shingles". No fall/injury. Scan technique: Volume acquisition of data unenhanced emergency CT scan of the head and brain obtained with patient lying supine on the Siemens multislice scanner [place], [place]. All data archived in the PACS system for storage, reformatting axial/sagittal/coronal planes and study (bone/brain windows). INTERPRETATION: 1. Uniformly thick bony calvarium and symmetric clear pneumatization of the paranasal/mastoid sinuses i.e. no inflammation. 2. Symmetric normal-appearing orbits and optic globes. Nasal septum is straight in the midline. 3. Normal symmetric in appearance with underlying mirror-image normal ventricular system. 4. No supratentorial or posterior fossa mass lesion. Cerebellum unremarkable. Physiologic pineal and choroid plexus Ca++. 5. No sign of brain contusion or extracerebral/intracranial epidural/subdural hematoma. 6. No focal areas of ischemic infarct or signs of acute intracerebral/intraventricular/subarachnoid bleed. CONCLUSION: Negative unenhanced CT exam head and brain (for age).
== END 2019-01-25 13:17 | disposition home or self-care (01) ==
LOC: DL.ED 11:17
DX: B02.31 Zoster conjunctivitis (principal); I12.9 Hypertensive chronic kidney disease with stage 1 through stage 4 chronic kidney disease, or unspecified chronic kidney disease; N18.9 Chronic kidney disease, unspecified; K21.9 Gastro-esophageal reflux disease without esophagitis; Z88.8 Allergy status to other drugs, medicaments and biological substances; Z79.899 Other long term (current) drug therapy
CPT/HCPCS: 70450; 99283; 99284-25

== ENCOUNTER 2020-07-11 06:56 | Day surgery (SDC) | payer MEDICARE, OTHER ==
[~2020-07-11 06:56] MED LIST changes: -Acetaminophen 325 MG Tab PO PRN; -Cataract Ophth Solution EYERT ONE; +Midazolam 1 MG/ML 2 ML SDV ONE; -Moxifloxacin 0.5% Ophth Soln 3 ML Bottle EYERT ONE; -Ondansetron 4 MG/2 ML SDV IVPUSH PRN; -Phenylephrine 10% Ophth Soln 5 ML Bot EYERT ONE; -Phenylephrine 10% Ophth Soln 5 ML Bot EYERT PRN; -Povidone-Iodine 5% Sterile Ophth Soln 30 ML Bottle EYERT ONE; -Proparacaine 0.5% Ophth Soln 15 ML Bottle EYERT ONE; -Sodium Chloride 0.9% 10 ML Syringe FLUSH PRN; -Timolol Maleate 0.5% Ophth Soln 5 ML Bottle EYERT ONE; +fentaNYL 100 MCG/2 ML SDV ONE
[2020-07-11] MEDS ORDERED: fentaNYL 100 MCG/2 ML SDV IV ONE ×3 (06:57→08:25)
[2020-07-11] MEDS ORDERED: Midazolam 1 MG/ML 2 ML SDV IV ONE ×3 (06:57→08:26)
[2020-07-11] MEDS ORDERED: Dextrose 5%-0.45% NaCl 1,000 ML IV SCH (07:30)
--- NOTE | 2020-07-11 12:56 | OR ---
DATE: 07/11/2020 PROCEDURE: Esophagogastroduodenoscopy. INSTRUMENT USED: [id number] Olympus video panendoscope. PREMEDICATIONS: No oral or topical anesthesia used. Fentanyl 75 mcg intravenous, Versed 1 mg intravenous. The procedure was done under pulse oximetry, BP recording, and product tester. O2 cannula used. INDICATION: The patient with previous squamous cell cancer therapy. Esophagogastroduodenoscopy is performed for detection of any recurrent malignant lesions, endoscopic hemostasis therapy if needed. PROCEDURE IN DETAIL: The scope was passed with ease. Adequate visualization of the esophagus was made from proximal to distal areas. No upper esophageal lesions identified. No distal esophageal stricture. No uphill or downhill esophageal varices. No Radha-Bach tear. No evidence of erosive esophagitis by Viborg criteria. No esophageal polyp or tumor mass identified. Thin columnar epithelium was noted at around 36 cm distal to the oral verge, photographs were taken of the area, NBI views were also obtained. No proximal gastric varices noted. Gastric fundus examination by retroflexion showed no polypoid lesions. No gastric ulcer, malignant mass, or vascular ectasia identified. Duodenal bulb showed no ulcer. Visualized second part of the duodenum was unremarkable. No bleeding was noted from any of the visualized areas at the completion of examination. Photographs were taken of the duodenal bulb, gastric antrum, fundus, and distal esophagus. IMPRESSION: Status post squamous cell esophageal cancer. The patient tolerated the procedure well. [facility] /[id number]
--- NOTE | 2020-07-11 13:32 | LETTER ---
07/11/2020 Lauren Dickinson MD [facility] [address] [place] [id number] RE: ROSCOE ZHAO : [address] Dickinson: Mr. Roscoe Zhao had esophagogastroduodenoscopy done this morning and he tolerated the procedure well. I, herewith, send a copy of the endoscopy note and photographs for your review. Thank you. Sincerely, [facility] /[id number]
== END 2020-07-11 10:30 | disposition home or self-care (01) ==
LOC: DL.ENDO 06:56
PROVIDERS: ATTEND Internal Medicine Gastroenterology
DX: Z08 Encounter for follow-up examination after completed treatment for malignant neoplasm (principal); Z85.01 Personal history of malignant neoplasm of esophagus
CPT/HCPCS: J2250; J3010; J7042

== ENCOUNTER 2021-02-10 16:16 | Emergency (ER) | payer MEDICARE, OTHER ==
[2021-02-10 16:52] LABS: ANION GAP 14.5 mEq/L (7-13)
[2021-02-10 16:55] LABS: CORONAVIRUS COVID-19 NAA NEGATIVE (NEGATIVE)
[2021-02-10] MEDS ORDERED: cefTRIAXone 1 GM in Sodium Chloride 0.9% 50 ML IV ONE (17:04)
--- NOTE | 2021-02-10 17:12 | EDM.PDOC ---
ED HPI GENERAL MEDICAL PROBLEM - General Chief Complaint: General Stated Complaint: WEAK, PHNEMONIA, DEHYDRATED Time Seen by Provider: 02/10/21 16:50 Source of Information: Reports: Patient History Limitations: Reports: No Limitations - History of Present Illness INITIAL COMMENTS - FREE TEXT/NARRATIVE: This 89 yo male patient reports to the ED under the direction of his primary care facility. The patient reports he has been seen in the [facility] 2 times (once on 02/06/21 and again this morning). The patient's primary care provider reports he noticed that the patient's WBC had increased between the first visit and the visit today (went from 10.6 - 11.8). The patient reports he has noticed increased fatigue over the past week. The patient reports he has been taking the medications as prescribed by his primary care facility. The patient reports he has not been eating or drinking well, but that is not necessarily abnormal for him. The patient reports he normally eats well in the morning, but snacks the rest of the day. The patient reports he has been taking some cough medication for his cough. Duration: Day(s):, Constant Location: Reports: Chest Quality: Reports: Other Severity: Moderate Improves with: Reports: None Worsens with: Reports: None Context: Reports: Other Associated Symptoms: Reports: Cough, Shortness of Breath, Weakness - Related Data Allergies Allergy/AdvReac Type Severity Reaction Status Date / Time lisinopril AdvReac Cough Verified 02/10/21 16:16 Home Meds: Home Meds Pantoprazole [ProTONIX] 40 mg PO DAILY 12/18/17 [History] dilTIAZem HCL [Diltiazem 24Hr ER] 180 mg PO DAILY 12/18/17 [History] Pregabalin 50 mg PO BID 02/10/21 [History] Past Medical History HEENT History: Reports: Cataract, Impaired Vision, Other (See Below) Other HEENT History: HX OF ESOPHAGEAL CANCER Cardiovascular History: Reports: Hypertension Other Cardiovascular History: PERIPHERAL ARTERY DISEASE Respiratory History: Reports: Other (See Below) Other Respiratory History: CHRONIC DRY COUGH Gastrointestinal History: Reports: GERD, Other (See Below) Other Gastrointestinal History: esophageal CA Genitourinary History: Reports: Chronic Renal Insuffiency, Prostate Disorder Other Genitourinary History: HX OF PROSTATE CA Musculoskeletal History: Reports: None Neurological History: Reports: None Other Neuro History: HX OF VAOGENIC CEREBRAL EDEMA. HS OF BRAIN METASTASIS Psychiatric History: Reports: Anxiety, Depression Endocrine/Metabolic History: Reports: None Hematologic History: Reports: Anemia, Blood Transfusion(s) Immunologic History: Reports: None Oncologic (Cancer) History: Reports: Basal Cell Carcinoma, Esophageal, Prostate Dermatologic History: Reports: Other (See Below) Other Dermatologic History: BASAL CELL CARCINOMA - Infectious Disease History Infectious Disease History: Reports: Chicken Pox, Measles, Mumps - Past Surgical History Head Surgeries/Procedures: Reports: None HEENT Surgical History: Reports: None, Cataract Surgery Cardiovascular Surgical History: Reports: None Respiratory Surgical History: Reports: None GI Surgical History: Reports: Colonoscopy, EGD Male Surgical History: Reports: Circumcision Endocrine Surgical History: Reports: None Neurological Surgical History: Reports: None Musculoskeletal Surgical History: Reports: Other (See Below) Other Musculoskeletal Surgeries/Procedures:: back surgery Oncologic Surgical History: Reports: None Dermatological Surgical History: Reports: Skin Biopsy Social & Family History - Family History Family Medical History: Unobtainable - Tobacco Use Tobacco Use Status *Q: Never Tobacco User Second Hand Smoke Exposure: No - Caffeine Use Caffeine Use: Reports: None Other Caffeine Use: VERY OCCASIONAL - Recreational Drug Use Recreational Drug Use: No - Living Situation & Occupation Living situation: Reports: , with Spouse Occupation: Retired ED ROS GENERAL - Review of Systems Review Of Systems: Comprehensive ROS is negative, except as noted in HPI. ED EXAM, GENERAL - Physical Exam Exam: See Below Exam Limited By: No Limitations General Appearance: Alert, WD/WN, Mild Distress Eye Exam: Bilateral Eye: EOMI, Normal Inspection, PERRL Ears: Normal External Exam, Normal Canal, Hearing Grossly Normal, Normal TMs Nose: Normal Inspection, Normal Mucosa, No Blood Throat/Mouth: Normal Inspection, Normal Lips, Normal Teeth, Normal Gums, Normal Oropharynx, Normal Voice, No Airway Compromise Head: Atraumatic, Normocephalic Neck: Normal Inspection, Supple, Non-Tender, Full Range of Motion Respiratory/Chest: No Respiratory Distress, No Accessory Muscle Use, Chest Non-Tender, Decreased Breath Sounds Cardiovascular: Normal Peripheral Pulses, Regular Rate, Rhythm, No Edema, No Gallop, No JVD, No Murmur, No Rub GI/Abdominal: Normal Bowel Sounds, Soft, Non-Tender, No Organomegaly, No Distention, No Abnormal Bruit, No Mass (Male) Exam: Deferred Rectal (Males) Exam: Deferred Back Exam: Normal Inspection, Full Range of Motion, NT Extremities: Normal Inspection, Normal Range of Motion, Non-Tender, Normal Capillary Refill, No Pedal Edema Neurological: Alert, Oriented, CN II-XII Intact, Normal Cognition, Normal Gait, Normal Reflexes, No Motor/Sensory Deficits Psychiatric: Normal Affect, Normal Mood Skin Exam: Warm, Dry, Intact, Normal Color, No Rash Lymphatic: No Adenopathy Course - Vital Signs Last Recorded V/S: Last Vital Signs Temp 98 F 02/10/21 16:20 Pulse 72 02/10/21 16:20 Resp 20 02/10/21 16:20 BP 124/58 L 02/10/21 16:20 Pulse Ox 98 02/10/21 16:20 - Orders/Labs/Meds Orders: Active Orders 24 hr Category Date Time Status Sodium Chloride 0.9% [Normal Saline] 500 ml Med 02/10/21 17:15 Active IV .BOLUS Medication Orders Sodium Chloride (Normal Saline) 500 mls @ 999 mls/hr IV .BOLUS ERROL Last Admin: 02/10/21 17:17 Dose: 999 mls/hr Documented by: [email or web address] Labs: Laboratory Tests 02/10/21 02/10/21 02/10/21 Range/Units 16:06 16:30 16:30 WBC 10.4 H (5.0-10.0) 10^3/uL RBC 3.10 L (4.6-6.2) 10^6/uL Hgb 9.2 L D (14.0-18.0) g/dL Hct 28.1 L (40.0-54.0) % MCV 90.6 (80-100) fL MCH 29.7 (27.0-34.0) pg MCHC 32.7 L (33.0-35.0) g/dL Plt Count 414 D (150-450) 10^3/uL Neut % (Auto) 68.2 (42.2-75.2) % Lymph % (Auto) 16.3 L (20.5-50.1) % [place] % (Auto) 11.6 H (2-8) % Eos % (Auto) 3.4 H (1.0-3.0) % Baso % (Auto) 0.5 (0.0-1.0) % Sodium 138 (136-145) mmol/L Potassium 4.5 (3.5-5.1) mmol/L Chloride 103 (98-107) mmol/L Carbon Dioxide 25 (21-32) mmol/L Anion Gap 14.5 H (7-13) mEq/L BUN 36 H (7-18) mg/dL Creatinine 1.63 H (0.70-1.30) mg/dL Est Cr Clr Drug Dosing 22.15 mL/min Estimated GFR (MDRD) 40 BUN/Creatinine Ratio 22.1 (No establ ref range) Glucose 142 H (70-99) mg/dL Lactic Acid (0.4-2.0) mmol/L Calcium 9.1 (8.5-10.1) mg/dL Total Bilirubin 0.2 (0.2-1.0) mg/dL AST 26 (15-37) U/L ALT 20 (16-63) U/L Alkaline Phosphatase 91 (46-116) U/L Total Protein 6.6 (6.4-8.2) g/dL Albumin 2.5 L (3.4-5.0) g/dL Globulin 4.1 Albumin/Globulin Ratio 0.61 Influenza Type A RNA Negative (NEGATIVE) Influenza Type B RNA Negative (NEGATIVE) SARS-CoV-2 RNA (KALA) Negative (NEGATIVE) 02/10/21 Range/Units 16:30 WBC (5.0-10.0) 10^3/uL RBC (4.6-6.2) 10^6/uL Hgb (14.0-18.0) g/dL Hct (40.0-54.0) % MCV (80-100) fL MCH (27.0-34.0) pg MCHC (33.0-35.0) g/dL Plt Count (150-450) 10^3/uL Neut % (Auto) (42.2-75.2) % Lymph % (Auto) (20.5-50.1) % [place] % (Auto) (2-8) % Eos % (Auto) (1.0-3.0) % Baso % (Auto) (0.0-1.0) % Sodium (136-145) mmol/L Potassium (3.5-5.1) mmol/L Chloride (98-107) mmol/L Carbon Dioxide (21-32) mmol/L Anion Gap (7-13) mEq/L BUN (7-18) mg/dL Creatinine (0.70-1.30) mg/dL Est Cr Clr Drug Dosing mL/min Estimated GFR (MDRD) BUN/Creatinine Ratio (No establ ref range) Glucose (70-99) mg/dL Lactic Acid 1.6 (0.4-2.0) mmol/L Calcium (8.5-10.1) mg/dL Total Bilirubin (0.2-1.0) mg/dL AST (15-37) U/L ALT (16-63) U/L Alkaline Phosphatase (46-116) U/L Total Protein (6.4-8.2) g/dL Albumin (3.4-5.0) g/dL Globulin Albumin/Globulin Ratio Influenza Type A RNA (NEGATIVE) Influenza Type B RNA (NEGATIVE) SARS-CoV-2 RNA (KALA) (NEGATIVE) Meds: Medications Generic Name Dose Route Start Last Admin Trade Name Freq PRN Reason Stop Dose Admin Sodium Chloride 500 mls @ 999 mls/hr 02/10/21 17:15 02/10/21 17:17 Normal Saline IV 999 mls/hr .BOLUS ERROL Administration Discontinued Medications Generic Name Dose Route Start Last Admin Trade Name Freq PRN Reason Stop Dose Admin Ceftriaxone Sodium 1 gm/ 50 mls @ 100 mls/hr 02/10/21 17:04 02/10/21 17:17 Sodium Chloride IV 02/10/21 17:33 100 mls/hr ONETIME ONE Administration Departure - Departure Time of Disposition: 17:34 Disposition: Home, Self-Care 01 Condition: Fair Clinical Impression: URI (upper respiratory infection) Qualifiers: URI type: unspecified URI Qualified Code(s): J06.9 - Acute upper respiratory infection, unspecified - Discharge Information *PRESCRIPTION DRUG MONITORING PROGRAM REVIEWED*: Not Applicable *COPY OF PRESCRIPTION DRUG MONITORING REPORT IN PATIENT ANNE: Not Applicable Instructions: Upper Respiratory Infection, Adult, [id number] Forms: ED Department Discharge Care Plan Goals: The patient was advised of the examination and lab results during the visit. The patient was given IV fluids and IV antibiotics during the visit. The patient was encouraged to continue to monitor his symptoms. The patient was encouraged to eat well balanced meals to help his body recover. If the patient has any additional symptoms or concerns, the patient should either return to the emergency department or visit his primary care facility. Sepsis Event Note (ED) - Evaluation Sepsis Screening Result: No Definite Risk - Focused Exam Vital Signs: Vital Signs Temp Pulse Resp BP Pulse Ox 02/10/21 16:20 98 F 72 20 124/58 L 98 - My Orders Last 24 Hours: My Active Orders 02/10/21 17:15 Sodium Chloride 0.9% [Normal Saline] 500 ml IV .BOLUS - Assessment/Plan Last 24 Hours: My Active Orders 02/10/21 17:15 Sodium Chloride 0.9% [Normal Saline] 500 ml IV .BOLUS
[2021-02-10] MEDS ORDERED: Sodium Chloride 0.9% 500 ML IV SCH (17:15)
== END 2021-02-10 17:42 | disposition home or self-care (01) ==
LOC: DL.ED 16:16
DX: J06.9 Acute upper respiratory infection, unspecified (principal); I12.9 Hypertensive chronic kidney disease with stage 1 through stage 4 chronic kidney disease, or unspecified chronic kidney disease; N18.9 Chronic kidney disease, unspecified; K21.9 Gastro-esophageal reflux disease without esophagitis; Z79.899 Other long term (current) drug therapy; Z88.8 Allergy status to other drugs, medicaments and biological substances; Z20.822 Contact with and (suspected) exposure to COVID-19
CPT/HCPCS: 0240U; 36415; 80053; 83605; 85025; 96365; 99283-25; J0696; J7040

== ENCOUNTER 2021-02-13 10:44 | Emergency (ER) | payer MEDICARE, OTHER ==
--- NOTE | 2021-02-13 11:13 | EDM.PDOC ---
ED [facility] GENERAL MEDICAL PROBLEM - General Chief Complaint: Head Injury Time Seen by Provider: 02/13/21 10:44 Source of Information: Reports: Patient, EMS, RN, RN Notes Reviewed History Limitations: Reports: Other (Confusion; EMS states at baseline per family ) - History of Present Illness INITIAL COMMENTS - FREE TEXT/NARRATIVE: Roscoe is an 89 y/o male with a history of dementia who presents to the ED via EMS following a fall in his home. The patient is pleasantly confused at baseline and is oriented to only self. He is unable to state events surrounding the fall and is unsure if he lost consciousness. He denies pain to his head, neck, chest, abdomen, back, or extremities. He is uncertain which medications he takes daily. Per EMS, the patient fell this morning in his home. It was an unwitnessed fall. He is currently under treatment for bacterial pneumonia with Azithromycin and Augmentin. Trauma Notes: As above in HPI Arrival Time: 1044 C-Collar Status: Not placed by EMS; Placed by magazine writer with initial assessment at 1046 Spinal Board/Immobilization Status: Not placed by EMS GCS on Arrival: 15 Primary Trauma Survey (1046) Airway: Patent nasal and oral airways. Conversant with normal speech. No evidence of airway obstruction. Breathing: Spontaneous respirations, symmetric chest rise and fall, non-labored breathing. Decreased breath sounds throughout Circulation: No central, peripheral, or perioral cyanosis. Heart rate and rhythm regular. No murmur or gallop. Intact distal pulses and capillary refill x4 distal extremities. Deformity/Disability: Head normal cephalic. 2 cm shallow linear abrasion to left parietooccipital region, no active bleeding. Chest non-tender, benign to exam. Abdomen soft, non-tender, benign to exam. Pelvis stable. Bilateral upper and lower extremities non-tender, atraumatic. No long bone deformities. No acute motor or sensory deficits. Exposure: Skin warm and dry. - Related Data Allergies Allergy/AdvReac Type Severity Reaction Status Date / Time lisinopril AdvReac Cough Verified 02/13/21 10:38 Home Meds: Home Meds Pantoprazole [ProTONIX] 40 mg PO DAILY 12/18/17 [History] dilTIAZem HCL [Diltiazem 24Hr ER] 180 mg PO DAILY 12/18/17 [History] Pregabalin 50 mg PO BID 02/10/21 [History] Past Medical History HEENT History: Reports: Cataract, Impaired Vision, Other (See Below) Other HEENT History: HX OF ESOPHAGEAL CANCER Cardiovascular History: Reports: Hypertension Other Cardiovascular History: PERIPHERAL ARTERY DISEASE Respiratory History: Reports: Other (See Below) Other Respiratory History: CHRONIC DRY COUGH. HX OF ESPOPHGEAL CA Gastrointestinal History: Reports: GERD, Other (See Below) Other Gastrointestinal History: esophageal CA Genitourinary History: Reports: Chronic Renal Insuffiency, Prostate Disorder Other Genitourinary History: HX OF PROSTRATE CA Musculoskeletal History: Reports: None Neurological History: Reports: None Other Neuro History: HX OF VAOGENIC CEREBRAL EDEMA. HS OF BRAIN METASTASIS Psychiatric History: Reports: Anxiety, Depression Endocrine/Metabolic History: Reports: None Hematologic History: Reports: Anemia, Blood Transfusion(s) Immunologic History: Reports: None Oncologic (Cancer) History: Reports: Basal Cell Carcinoma, Esophageal, Prostate Dermatologic History: Reports: Other (See Below) Other Dermatologic History: BASAL CELL CARCINOMA - Infectious Disease History Infectious Disease History: Reports: Chicken Pox, Measles, Mumps - Past Surgical History Head Surgeries/Procedures: Reports: None HEENT Surgical History: Reports: None, Cataract Surgery Cardiovascular Surgical History: Reports: None Respiratory Surgical History: Reports: None GI Surgical History: Reports: Colonoscopy, EGD Male Surgical History: Reports: Circumcision Endocrine Surgical History: Reports: None Neurological Surgical History: Reports: None Musculoskeletal Surgical History: Reports: Other (See Below) Other Musculoskeletal Surgeries/Procedures:: back surgery Oncologic Surgical History: Reports: None Dermatological Surgical History: Reports: Skin Biopsy Social & Family History - Family History Family Medical History: Unobtainable - Caffeine Use Caffeine Use: Reports: Coffee Other Caffeine Use: VERY OCCASIONAL - Living Situation & Occupation Living situation: Reports: , with Spouse Occupation: Retired ED ROS GENERAL - Review of Systems Review Of Systems: Comprehensive ROS is negative, except as noted in HPI. ED EXAM, HEAD INJURY - Physical Exam Exam: See Below Text/Narrative:: Secondary Trauma Survey as follows (7639) Exam Limited By: Other (History of advanced dementia) General Appearance: Alert, No Apparent Distress Head: Normocephalic, Scalp Abrasions (2cm linear abrasion, no active bleeding), Scalp Hematoma (To left parietooccipital), Scalp Tenderness (To left parietooccipital). No: Active Bleeding, Wright's Sign, Raccoon Eyes Nexus Criteria: Altered Level of Consciousness, Painful Distraction Injuries. No: Posterior, Midline Cervical Tenderness, Evidence of Intoxication, Focal Neurological Deficit Eyes: Bilateral Eye: EOMI, Normal Inspection, PERRL (2mm) Ears: Normal External Exam, Normal Canal, Hearing Grossly Normal, Normal TMs Nose: Normal Inspection Throat/Mouth: Normal Inspection, Normal Oropharynx, Normal Voice, No Airway Compromise Neck: Non-Tender, Full Range of Motion, Other (C-collar applied upon initial assessment by magazine writer at 1046 due to confusion; C-spine cleared via CT scan, c- collar removed at 1156) Respiratory: No Respiratory Distress, Lungs Clear, Normal Breath Sounds, No Accessory Muscle Use, Chest Non-Tender. No: Crackles, Rales, Rhonchi, Wheezing, Stridor Cardiovascular: Normal Peripheral Pulses, Regular Rate, Rhythm, No Edema, No Gallop, No JVD, No Murmur, No Rub GI/Abdominal Exam: Normal Bowel Sounds, Soft, Non-Tender, No Distention, No Abnormal Bruit, No Mass, Pelvis Stable. No: Guarding, Rigid, Rebound (Male) Exam: No Hernia, Normal Inspection, Normal Prostate, Circumcised Rectal (Males) Exam: Normal Exam Back Exam: Normal Inspection, Full Range of Motion. No: Paraspinal Tenderness, Vertebral Tenderness Extremities: Normal Inspection, Normal Range of Motion, Non-Tender, No Pedal Edema, Normal Capillary Refill Neurologic: music composer II-XII nml As Tested, No Motor/Sensory Deficits, Alert, Normal Mood/Affect, Oriented x 3 Skin: Normal Color, Warm/Dry - Viry Coma Score Best Eye Response ([place]): (4) Open Spontaneously Best Verbal Response ([place]): (5) Oriented Best Motor Response ([place]): (6) Obeys Commands #1 Interpretation EKG Date: 02/13/21 Time: 11:38 Rhythm: Other (SR with 1st Degree AVB) Rate (Beats/Min): 70 [place]: LAD-Left [place] Deviation P-Wave: Present Course - Vital Signs Last Recorded V/S: Last Vital Signs Temp 98.6 F 02/13/21 12:49 Pulse 66 02/13/21 12:49 Resp 18 02/13/21 12:49 BP 156/58 H 02/13/21 12:49 Pulse Ox 98 02/13/21 12:49 - Orders/Labs/Meds Labs: Laboratory Tests 02/13/21 02/13/21 02/13/21 Range/Units 10:51 10:51 10:51 WBC 7.6 (5.0-10.0) 10^3/uL RBC 3.39 L (4.6-6.2) 10^6/uL Hgb 9.9 L (14.0-18.0) g/dL Hct 30.0 L (40.0-54.0) % MCV 88.5 (80-100) fL MCH 29.2 (27.0-34.0) pg MCHC 33.0 (33.0-35.0) g/dL Plt Count 387 (150-450) 10^3/uL Neut % (Auto) 66.9 (42.2-75.2) % Lymph % (Auto) 18.6 L (20.5-50.1) % Randall % (Auto) 11.5 H (2-8) % Eos % (Auto) 2.6 (1.0-3.0) % Baso % (Auto) 0.4 (0.0-1.0) % Add Manual Diff Yes Neutrophils % (Manual) 75 (42-75) % Lymphocytes % (Manual) 13 L (20-50) % Monocytes % (Manual) 11 H (2-8) % Eosinophils % (Manual) 1 (1-3) % PT 10.4 (9.0-12.0) SEC INR 1.0 (0.9-1.2) APTT 24.9 (22.0-34.0) SEC Sodium 138 (136-145) mmol/L Potassium 4.3 (3.5-5.1) mmol/L Chloride 102 (98-107) mmol/L Carbon Dioxide 28 (21-32) mmol/L Anion Gap 12.3 (7-13) mEq/L BUN 33 H (7-18) mg/dL Creatinine 1.63 H (0.70-1.30) mg/dL Est Cr Clr Drug Dosing 31.65 mL/min Estimated GFR (MDRD) 40 BUN/Creatinine Ratio 20.2 (No establ ref range) Glucose 98 (70-99) mg/dL Lactic Acid (0.4-2.0) mmol/L Calcium 9.6 (8.5-10.1) mg/dL Magnesium 2.4 (1.8-2.4) mg/dL Total Bilirubin 0.3 (0.2-1.0) mg/dL AST 22 (15-37) U/L ALT 22 (16-63) U/L Alkaline Phosphatase 99 (46-116) U/L Troponin I High Sens 12 (<=76) pg/mL C-Reactive Protein 3.6 H (0.0-0.9) mg/dL B-Natriuretic Peptide 86 (0-100) pg/ml Total Protein 7.0 (6.4-8.2) g/dL Albumin 2.8 L (3.4-5.0) g/dL Globulin 4.2 Albumin/Globulin Ratio 0.67 Ethyl Alcohol < 3 (0) mg/dL 02/13/21 Range/Units 10:51 WBC (5.0-10.0) 10^3/uL RBC (4.6-6.2) 10^6/uL Hgb (14.0-18.0) g/dL Hct (40.0-54.0) % MCV (80-100) fL MCH (27.0-34.0) pg MCHC (33.0-35.0) g/dL Plt Count (150-450) 10^3/uL Neut % (Auto) (42.2-75.2) % Lymph % (Auto) (20.5-50.1) % Randall % (Auto) (2-8) % Eos % (Auto) (1.0-3.0) % Baso % (Auto) (0.0-1.0) % Add Manual Diff Neutrophils % (Manual) (42-75) % Lymphocytes % (Manual) (20-50) % Monocytes % (Manual) (2-8) % Eosinophils % (Manual) (1-3) % PT (9.0-12.0) SEC INR (0.9-1.2) APTT (22.0-34.0) SEC Sodium (136-145) mmol/L Potassium (3.5-5.1) mmol/L Chloride (98-107) mmol/L Carbon Dioxide (21-32) mmol/L Anion Gap (7-13) mEq/L BUN (7-18) mg/dL Creatinine (0.70-1.30) mg/dL Est Cr Clr Drug Dosing mL/min Estimated GFR (MDRD) BUN/Creatinine Ratio (No establ ref range) Glucose (70-99) mg/dL Lactic Acid 1.3 (0.4-2.0) mmol/L Calcium (8.5-10.1) mg/dL Magnesium (1.8-2.4) mg/dL Total Bilirubin (0.2-1.0) mg/dL AST (15-37) U/L ALT (16-63) U/L Alkaline Phosphatase (46-116) U/L Troponin I High Sens (<=76) pg/mL C-Reactive Protein (0.0-0.9) mg/dL B-Natriuretic Peptide (0-100) pg/ml Total Protein (6.4-8.2) g/dL Albumin (3.4-5.0) g/dL Globulin Albumin/Globulin Ratio Ethyl Alcohol (0) mg/dL - Radiology Interpretation Free Text/Narrative:: See Rad Report - Re-Assessments/Exams Free Text/Narrative Re-Assessment/Exam: 02/13/21 GCS at 1 hour (1146): 15 Findings of examination, lab work, and imaging reviewed with patient and . Supportive cares discussed. Patient and instructed to follow up with primary care provider in 1-2 days regarding todays visit. Red flag signs and symptoms which would warrant immediate reevaluation reviewed. Patient and verbalized understanding and agreement with the plan of care. GCS at discharge (1244): 15 Departure - Departure Time of Disposition: 12:26 Disposition: Home, Self-Care 01 Condition: Fair Clinical Impression: Fall from ground level, Degenerative disc disease, cervical, History of brain tumor Laceration of head Qualifiers: Encounter type: initial encounter Location of open wound of head: scalp Foreign body presence: without foreign body Qualified Code(s): S01.01XA - Laceration without foreign body of scalp, initial encounter Chronic kidney disease Qualifiers: Chronic kidney disease stage: unspecified stage Qualified Code(s): N18.9 - Chronic kidney disease, unspecified - Discharge Information *PRESCRIPTION DRUG MONITORING PROGRAM REVIEWED*: Not Applicable *COPY OF PRESCRIPTION DRUG MONITORING REPORT IN PATIENT ANNE: Not Applicable Instructions: Fall Prevention in the Home, Adult, [id number], Post-Concussion Syndrome, [id number] Referrals: PCP,None [Primary Care Provider] - Forms: ED Department Discharge Additional Instructions: 1.) You may take acetaminophen (Tylenol) 650-1000mg every six hours, as pain persists. 2.) You may apply ice to the affected area as swelling and pain persist; 20 minutes, every hour. 3.) Follow up with your primary care provider in 1-2 days regarding today's visit and to discuss possibility of obtaining assistance within the home or placement. Sepsis Event Note (ED) - Evaluation Sepsis Screening Result: No Definite Risk
[2021-02-13 11:21] LABS: ANION GAP 12.3 mEq/L (7-13); CHLORIDE,CL 102 mmol/L (98-107); SODIUM,NA 138 mmol/L (136-145)
[2021-02-13 11:27] LABS: PTT,PARTIAL THROMBOPLSTIN TIME 24.9 SEC (22.0-34.0)
--- NOTE | 2021-02-13 11:35 | CT ---
EXAMINATION: Head wo Cont SEX: Male AGE: 89 years CLINICAL HISTORY: 89-year-old male injured in fall (trauma back of head) . Confusion. Comparison MRI ("large right hemispheric infarct") [address] scan ("negative") 25 January 2019. Scan technique: Volume acquisition of data emergency unenhanced CT scan of the head and brain obtained with patient lying supine on the Siemens multislice scanner [place], [place]. All data archived in the PACS system for storage, reformatting axial/sagittal/coronal planes and study. Interpretation: 1. New bone flap bony occipital cortex, on the right, since comparison CT exams. 2. No new signs of bony calvarial fracture, underlying brain contusion or epidural/subdural hematoma. 3. Scattered multi infarcts ischemic changes. Asymmetric large area of ischemic infarct/encephalomalacia involving the occipital lobe, posteriorly, right cerebral hemisphere. 4. No sign of acute intracerebral, intraventricular or subarachnoid hemorrhage. 5. No new supratentorial or posterior fossa mass lesion. No hydrocephalus. CONCLUSION: Evidence of neurosurgery. 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 No sign of acute fracture, underlying brain contusion, new epidural/subdural hematoma or intracranial bleed.
--- NOTE | 2021-02-13 11:42 | CT ---
EXAMINATION: Cervical Spine wo Cont SEX: Male AGE: 89 years CLINICAL HISTORY: 89-year-old confused male with history recent fall (trauma back of head). Patient has had large right occipital infarct and previous neurosurgery (large occipital bone flap). Scan technique: Volume acquisition of data emergency unenhanced CT scan of the entire cervical spine, skull base and lung apices obtained with the patient lying supine on the Siemens multislice scanner [place], [place]. All data archived in the PACS system for storage, reformatting axial/sagittal/coronal planes and study. Interpretation: Abnormal. 1. Multi level cervical disc disease with associated chronic severe, reactive arthritic, degenerative changes from C3 through C7 levels (large marginal spondylosis bridging T1 and T2 interspaces). 2. Dense reactive atlantoaxial sclerosis. No basal skull fracture. Normal TMJs. Clear pneumatization mastoid sinuses. 3. *No prevertebral soft tissue swelling, cervical fracture, dislocation, or jumped locked facet. 4. Chronic extensive degenerative destructive changes of the articulating facets multiple levels cervical spine. 5. Medial clavicles, first 2 ribs and lung apices unremarkable.
== END 2021-02-13 12:35 | disposition home or self-care (01) ==
LOC: DL.ED 10:44
DX: S01.01XA Laceration without foreign body of scalp, initial encounter (principal); M50.30 Other cervical disc degeneration, unspecified cervical region; I12.9 Hypertensive chronic kidney disease with stage 1 through stage 4 chronic kidney disease, or unspecified chronic kidney disease; N18.9 Chronic kidney disease, unspecified; K21.9 Gastro-esophageal reflux disease without esophagitis; Z88.8 Allergy status to other drugs, medicaments and biological substances; Z79.899 Other long term (current) drug therapy; Z85.841 Personal history of malignant neoplasm of brain; W18.39XA Other fall on same level, initial encounter; Y92.009 Unspecified place in unspecified non-institutional (private) residence as the place of occurrence of the external cause
CPT/HCPCS: 36415; 70450; 72125; 80053; 80307; 83605; 83735; 83880; 84484; 85025; 85610; 85730; 86140; 93005; 99284-25

== ENCOUNTER 2021-03-09 06:30 | Day surgery (SDC) | payer MEDICARE, OTHER ==
[2021-03-09] MEDS ORDERED: Midazolam 1 MG/ML 2 ML SDV IV ONE ×2 (06:31→07:30)
[2021-03-09] MEDS ORDERED: fentaNYL 100 MCG/2 ML SDV IV ONE ×3 (06:31→07:31)
[2021-03-09] MEDS ORDERED: Dextrose 5%-0.45% NaCl 1,000 ML IV SCH (07:30)
--- NOTE | 2021-03-09 08:42 | OR ---
DATE: 03/09/2021 PROCEDURES: Esophagogastroduodenoscopy, narrow band imaging, multiple pinch biopsies, and brush biopsy for cytology. INSTRUMENT USED: GIF-HQ190 Olympus video panendoscope. PREMEDICATIONS: No oral or topical anesthesia used. Fentanyl 75 mcg intravenous, Versed 1 mg intravenous. Nasal O2 cannula. The procedure was done under pulse oximetry, BP recording, and lunchroom monitor. INDICATIONS: The patient with previous esophageal cancer, treated, with dysphagia, unexplained and not responsive to medical measures. Esophagogastroduodenoscopy is performed for detection of any active erosive lesions, malignancy also under consideration, esophageal dilatations if indicated, endoscopic hemostasis therapy if needed. The scope was passed with ease. Adequate visualization of the esophagus was made from proximal to distal areas. No upper esophageal lesions identified. There was some amount of stricture of the distal esophagus, but the tip of the scope was passed to visualize the gastric mucosa. No uphill or downhill esophageal varices. No Radha-Bach tear. Grade D erosive changes were noted by Easton criteria. Sliding hiatal hernia was noted. Prominent folds noted in the area of Z-line, NBI views were obtained. Numerous pinch biopsies were taken from the prominent mucosa and sent for histopathology, brush biopsy was taken for cytology. No proximal gastric varices. Gastric fundus examination by retroflexion showed no polypoid lesions. No gastric ulcer, malignant mass, or vascular ectasia identified. Duodenal bulb showed no ulcer. Visualized second part of the duodenum was unremarkable. Photographs were taken of the duodenal bulb, gastric antrum, fundus, and distal esophagus. No bleeding was noted from any of the visualized areas at the completion of examination. IMPRESSION: 1. Sliding hiatal hernia. 2. Grade D gastroesophageal reflux disease. The patient tolerated the procedure well. [facility] /[id number]
--- NOTE | 2021-03-09 08:42 | OR ---
DATE: 03/09/2021 PROCEDURE DONE: Esophageal dilatations. INSTRUMENT USED: Pepe bougie esophageal dilators, [place] size 38, 40, and 42. PREMEDICATIONS: Done after EGD. DESCRIPTION OF PROCEDURE: Esophageal dilatations were done with ease using [place] size 38, 40, and 42 dilators. IMPRESSION: Distal esophageal stricture. The patient tolerated the procedure well. [facility] /[id number]
[2021-03-09] MEDS ORDERED: Sodium Chloride 0.9% 10 ML Syringe FLUSH SCH (09:00)
--- NOTE | 2021-03-09 09:03 | LETTER ---
03/09/2021 RE: ROSCOE ZHAO : 1930 Hernesto Jasso DO, [facility], [address] Jasso: Mr. Roscoe Zhao had esophagogastroduodenoscopy and esophageal dilatations done today, tolerating well. I herewith send a copy of the endoscopy note and photographs for your review. Thank you. Sincerely, [facility] /[id number]
== END 2021-03-09 10:03 | disposition home or self-care (01) ==
LOC: DL.ENDO 06:30
PROVIDERS: ATTEND Internal Medicine Gastroenterology
DX: K22.2 Esophageal obstruction (principal); K44.9 Diaphragmatic hernia without obstruction or gangrene; K21.9 Gastro-esophageal reflux disease without esophagitis; I12.9 Hypertensive chronic kidney disease with stage 1 through stage 4 chronic kidney disease, or unspecified chronic kidney disease; N18.9 Chronic kidney disease, unspecified; D64.9 Anemia, unspecified; Z80.0 Family history of malignant neoplasm of digestive organs; Z98.890 Other specified postprocedural states; Z01.812 Encounter for preprocedural laboratory examination; Z20.822 Contact with and (suspected) exposure to COVID-19
CPT/HCPCS: 43239; 43450; J2250; J3010; J7042; U0002; 88312

== ENCOUNTER 2021-05-29 05:51 | Day surgery (SDC) | payer MEDICARE, OTHER ==
[~2021-05-29 05:51] MED LIST changes: +Dextrose 5%-0.45% NaCl 1,000 ML IV SCH; -Midazolam 1 MG/ML 2 ML SDV ONE; +Sodium Chloride 0.9% 10 ML Syringe FLUSH PRN; +Sodium Chloride 0.9% 10 ML Syringe FLUSH SCH; -fentaNYL 100 MCG/2 ML SDV ONE
[2021-05-29] MEDS ORDERED: Midazolam 1 MG/ML 2 ML SDV IV ONE ×2 (05:52→07:13)
[2021-05-29] MEDS ORDERED: fentaNYL 100 MCG/2 ML SDV IV ONE ×3 (05:52→07:14)
[2021-05-29] MEDS ORDERED: Midazolam 1 MG/ML 2 ML SDV ONE (06:11)
[2021-05-29] MEDS ORDERED: fentaNYL 100 MCG/2 ML SDV ONE (06:11)
== END 2021-05-29 09:25 | disposition home or self-care (01) ==
LOC: DL.ENDO 05:51
PROVIDERS: ATTEND Internal Medicine Gastroenterology
DX: K22.2 Esophageal obstruction (principal); K22.10 Ulcer of esophagus without bleeding; K21.9 Gastro-esophageal reflux disease without esophagitis; K44.9 Diaphragmatic hernia without obstruction or gangrene; D64.9 Anemia, unspecified; N18.9 Chronic kidney disease, unspecified; I12.9 Hypertensive chronic kidney disease with stage 1 through stage 4 chronic kidney disease, or unspecified chronic kidney disease
CPT/HCPCS: 43235; 43450; J2250; J3010; J7042

== ENCOUNTER 2021-08-09 15:03 | Inpatient (IN) | payer MEDICARE, OTHER ==
[2021-08-09 16:26] LABS: ANION GAP 13.1 mEq/L (7-13)
[2021-08-09 17:49] LABS: CORONAVIRUS COVID-19 NAA NEGATIVE (NEGATIVE); RESPIRATORY SYNCYTIAL VIR NAA NEGATIVE (NEGATIVE)
[2021-08-09] MEDS ORDERED: Lactated Ringers 500 ML IV ONE (18:05)
[2021-08-09] MEDS ORDERED: Ondansetron 4 MG/2 ML SDV IVPUSH PRN (19:04)
[2021-08-09] MEDS ORDERED: Sodium Chloride 0.9% 10 ML Syringe FLUSH PRN (19:04)
[2021-08-09] MEDS ORDERED: Docusate Sodium 100 MG Cap PO PRN (19:04)
[2021-08-09] MEDS ORDERED: Magnesium Hydroxide 400 MG/5 ML Susp 30 ML Cup PO PRN (19:04)
[2021-08-09 20:15] LABS: PTT,PARTIAL THROMBOPLSTIN TIME 22.6 SEC (22.0-34.0)
[2021-08-09] MEDS ORDERED: HYDROmorphone 0.5 MG/0.5 ML Syringe IVPUSH PRN (21:29)
[2021-08-09] MEDS ORDERED: Non-Formulary Medication 1 Each (Fluorouracil [Fluorouracil] 30 GM Cream..G.) TOP PRN (21:39)
[2021-08-09] MEDS ORDERED: PREDNICARBATE TOP PRN (21:39)
[2021-08-09] MEDS ORDERED: HYDROCORTISONE ACETATE 25 MG RECTAL PRN (21:39)
[2021-08-09] MEDS ORDERED: CALCIUM CARBONATE 600 MG PO SCH (21:45)
[2021-08-09] MEDS: Sodium Chloride 0.9% 1,000 ML IV SCH (21:53)
[2021-08-09] MEDS: Enoxaparin 30 MG/0.3 ML Syringe SUBCUT SCH (23:29)
[2021-08-09] MEDS: Pregabalin 50 MG Cap PO SCH (23:36)
[2021-08-10] MEDS ORDERED: Haloperidol Lactate 5 MG/ML SDV IM PRN (01:29)
[2021-08-10] MEDS: Pantoprazole 40 MG Tab.CR PO SCH ×2 (05:46→17:46)
[2021-08-10] MEDS: Sodium Chloride 0.9% 1,000 ML IV SCH ×2 (05:46→13:51)
[2021-08-10] MEDS: Pregabalin 50 MG Cap PO SCH ×2 (09:47→21:58)
[2021-08-10] MEDS: Cholecalciferol (Vitamin D3) 25 MCG Tab PO SCH (09:47)
[2021-08-10] MEDS: Enoxaparin 30 MG/0.3 ML Syringe SUBCUT SCH (09:48)
[2021-08-10] MEDS: Diltiazem 180 MG Cap.CD PO SCH (09:48)
[2021-08-10] MEDS: Calcium Carbonate 500 MG Tab.Chew PO SCH (09:48)
[2021-08-10] MEDS ORDERED: Carboxymethylcellulose Sodium 1% Ophth Gel 0.4 ML UD EYEBOTH PRN (11:16)
[2021-08-10] MEDS: Tamsulosin 0.4 MG Cap.ER PO SCH (21:58)
[2021-08-10] MEDS: Acetaminophen 325 MG Tab PO PRN (21:58)
[2021-08-11 04:23] LABS: CORONAVIRUS COVID-19 NAA NEGATIVE (NEGATIVE)
[2021-08-11] MEDS: Pantoprazole 40 MG Tab.CR PO SCH ×2 (05:35→16:49)
[2021-08-11 07:40] LABS: ANION GAP 13.6 mEq/L (7-13); CHLORIDE,CL 105 mmol/L (98-107); SODIUM,NA 139 mmol/L (136-145)
[2021-08-11 07:49] LABS: ESTIMATED GFR 50
[2021-08-11] MEDS ORDERED: Vitamin E (dl-alpha-tocopherol acetate) 400 Unit Cap PO SCH (09:00)
[2021-08-11] MEDS: Cholecalciferol (Vitamin D3) 25 MCG Tab PO SCH (09:21)
[2021-08-11] MEDS: Calcium Carbonate 500 MG Tab.Chew PO SCH (09:21)
[2021-08-11] MEDS: Pregabalin 50 MG Cap PO SCH (09:22)
[2021-08-11] MEDS: Diltiazem 180 MG Cap.CD PO SCH (09:22)
[2021-08-11] MEDS: Enoxaparin 30 MG/0.3 ML Syringe SUBCUT SCH (09:23)
[2021-08-11] MEDS: Fluticasone NASAL Spray 16 GM Bottle NASBOTH SCH (10:55)
[2021-08-11] MEDS ORDERED: Dexamethasone 2 MG Tab PO ONE (11:30)
[2021-08-11] MEDS: Acetaminophen 325 MG Tab PO PRN (12:41)
[2021-08-11] MEDS: Tamsulosin 0.4 MG Cap.ER PO SCH (22:25)
[2021-08-12] MEDS: Pantoprazole 40 MG Tab.CR PO SCH ×2 (05:54→17:02)
[2021-08-12] MEDS: Vitamin E (dl-alpha-tocopherol acetate) 400 Unit Cap PO SCH (08:37)
[2021-08-12] MEDS: Diltiazem 180 MG Cap.CD PO SCH (08:37)
[2021-08-12] MEDS: Cholecalciferol (Vitamin D3) 25 MCG Tab PO SCH (08:38)
[2021-08-12] MEDS: Fluticasone NASAL Spray 16 GM Bottle NASBOTH SCH ×2 (08:38→08:39)
[2021-08-12] MEDS: Enoxaparin 30 MG/0.3 ML Syringe SUBCUT SCH ×2 (08:38→08:48)
[2021-08-12] MEDS: Calcium Carbonate 500 MG Tab.Chew PO SCH (08:38)
[2021-08-12] MEDS: Pregabalin 50 MG Cap PO SCH (08:38)
[2021-08-12] MEDS: Acetaminophen 325 MG Tab PO PRN (20:05)
[2021-08-12] MEDS: Tamsulosin 0.4 MG Cap.ER PO SCH (20:06)
[2021-08-13] MEDS: Albuterol 0.083% 2.5 MG/3 ML Neb Soln NEB PRN ×3 (02:10→14:05)
[2021-08-13] MEDS: Pantoprazole 40 MG Tab.CR PO SCH ×2 (06:31→15:16)
[2021-08-13] MEDS: Acetaminophen 325 MG Tab PO PRN ×2 (06:31→14:21)
[2021-08-13] MEDS: Pregabalin 50 MG Cap PO SCH (09:01)
[2021-08-13] MEDS: Fluticasone NASAL Spray 16 GM Bottle NASBOTH SCH (09:01)
[2021-08-13] MEDS: Vitamin E (dl-alpha-tocopherol acetate) 400 Unit Cap PO SCH (09:01)
[2021-08-13] MEDS: Cholecalciferol (Vitamin D3) 25 MCG Tab PO SCH (09:01)
[2021-08-13] MEDS: Calcium Carbonate 500 MG Tab.Chew PO SCH (09:01)
[2021-08-13] MEDS: Diltiazem 180 MG Cap.CD PO SCH (09:01)
[2021-08-13] MEDS: Enoxaparin 30 MG/0.3 ML Syringe SUBCUT SCH (09:02)
[2021-08-13] MEDS ORDERED: Furosemide 20 MG/2 ML VIAL IVPUSH ONE (10:50)
[2021-08-13 10:59] LABS: CORONAVIRUS COVID-19 NAA NEGATIVE (NEGATIVE); RESPIRATORY SYNCYTIAL VIR NAA NEGATIVE (NEGATIVE)
[2021-08-13] MEDS ORDERED: Iopamidol 755 Mg/ML 100 ML Bottle IVPUSH ONE (11:36)
[2021-08-13] MEDS: Albuterol/Ipratropium 3.0-0.5 MG/3 ML Neb Soln NEB SCH ×2 (14:06→17:16)
[2021-08-13] MEDS ORDERED: Morphine 2 MG/ML SYRINGE IVPUSH PRN (14:16)
[2021-08-13] MEDS ORDERED: HYDROmorphone 1 MG/ML Syringe IVPUSH PRN (14:19)
[2021-08-13] MEDS: Piperacillin/Tazobactam 3.375 GM in Sodium Chloride 0.9% 100 ML IV SCH ×2 (14:29→22:21)
[2021-08-13] MEDS ORDERED: Benzonatate 100 MG Cap PO PRN (14:46)
[2021-08-13] MEDS ORDERED: Flumazenil 0.1 MG/ML 5 ML MDV IVPUSH PRN (14:47)
[2021-08-13] MEDS: Codeine/guaiFENesin 10-100 MG/5 ML Syrup 5 ML Cup PO SCH ×2 (15:15→22:22)
[2021-08-13 15:44] LABS: O2 DELIVERY DEVICE NON REBR MASK; PCO2 VENOUS 39 mmHg (41-51); PH,VENOUS 7.41 (7.31-7.41); PO2 VENOUS 32 mmHg (35-42)
[2021-08-13 15:45] LABS: BASE EXCESS VENOUS -0.2 mmol/l ((-2)-(+3)); BICARBONATE,VENOUS 24 mmol/l (19-25); O2 SATURATION VENOUS 58.7 % (60-80)
[2021-08-13] MEDS: LORazepam 2 MG/ML SDV IVPUSH PRN ×3 (16:01→22:38)
[2021-08-13] MEDS ORDERED: Lidocaine 2% Jelly 10 ML Urojet MUCMEM ONE (16:13)
[2021-08-13] MEDS ORDERED: Sodium Chloride 0.9% 1,000 ML IV SCH (16:30)
[2021-08-13] MEDS ORDERED: Ketorolac 30 MG/ML SDV IVPUSH PRN (16:55)
[2021-08-13] MEDS ORDERED: Atropine 1% Ophth Soln 5 ML BOTTLE SL SCH (17:00)
[2021-08-13] MEDS: Atropine 1% Ophth Soln 5 ML BOTTLE SL SCH ×4 (17:15→22:37)
[2021-08-13] MEDS: Dexamethasone 4 MG/ML SDV IVPUSH SCH (17:16)
[2021-08-13] MEDS ORDERED: Acetaminophen 500 MG Tab PO SCH (18:00)
[2021-08-13] MEDS ORDERED: Morphine 4 MG/ML Syringe IVPUSH PRN (22:13)
[2021-08-13] MEDS: Morphine 4 MG/ML Syringe IVPUSH PRN (22:37)
[2021-08-14] MEDS: Atropine 1% Ophth Soln 5 ML BOTTLE SL SCH ×6 (00:50→11:24)
[2021-08-14] MEDS: Morphine 4 MG/ML Syringe IVPUSH PRN ×2 (00:54→06:23)
[2021-08-14] MEDS: LORazepam 2 MG/ML SDV IVPUSH PRN ×2 (00:55→11:24)
[2021-08-14] MEDS: Albuterol/Ipratropium 3.0-0.5 MG/3 ML Neb Soln NEB SCH ×3 (02:59→12:02)
[2021-08-14] MEDS: Dexamethasone 4 MG/ML SDV IVPUSH SCH (06:28)
[2021-08-15 08:47] LABS: BORDETELLA PARAPERT IS1001 Not Detected (Not Detected)
== END 2021-08-14 15:00 | disposition expired | DRG 947 ==
LOC: DL.ED 15:03 → DL.MS 19:04 → DL.ED 19:35 → DL.MS 08-13 21:14
PROVIDERS: ADMIT Internal Medicine; ATTEND Internal Medicine
DX: R53.1 Weakness (principal); J18.9 Pneumonia, unspecified organism; J96.91 Respiratory failure, unspecified with hypoxia; R40.20 Unspecified coma; C15.9 Malignant neoplasm of esophagus, unspecified; N18.9 Chronic kidney disease, unspecified; Z51.5 Encounter for palliative care; Z20.822 Contact with and (suspected) exposure to COVID-19; Z66 Do not resuscitate; N40.0 Benign prostatic hyperplasia without lower urinary tract symptoms; I12.9 Hypertensive chronic kidney disease with stage 1 through stage 4 chronic kidney disease, or unspecified chronic kidney disease; Z85.01 Personal history of malignant neoplasm of esophagus; K21.9 Gastro-esophageal reflux disease without esophagitis; F32.A Depression, unspecified; F41.9 Anxiety disorder, unspecified; H54.7 Unspecified visual loss; E86.0 Dehydration; I48.91 Unspecified atrial fibrillation; I73.9 Peripheral vascular disease, unspecified; K64.9 Unspecified hemorrhoids; G47.30 Sleep apnea, unspecified; Z85.828 Personal history of other malignant neoplasm of skin; Z88.8 Allergy status to other drugs, medicaments and biological substances; Z79.899 Other long term (current) drug therapy; Z98.49 Cataract extraction status, unspecified eye; Z85.46 Personal history of malignant neoplasm of prostate; Z98.890 Other specified postprocedural states; Z28.82 Immunization not carried out because of caregiver refusal; Z85.841 Personal history of malignant neoplasm of brain; Z92.3 Personal history of irradiation; W06.XXXA Fall from bed, initial encounter
CPT/HCPCS: 0240U; 0241U; 36415; 51702; 70450; 71045; 71046; 71260; 80048; 80053; 81001; 82310; 82803; 83605; 83735; 83880; 84145; 84484; 85025; 85379; 85610; 85730; 86140; 87040; 87486; 87581; 87633; 87798; 92610; 93005; 93970; 94640; 97116; 97161; 97166; 93010; 99223; 99232; 99233; 99239; 99285; 99285-25; A9270-GY; J1100; J1170; J1650; J1885; J1940; J2060; J2270; J2543; J3370; J3490; J7030; J7050; J7613-GY; J7620-GY; J8540